=== PATIENT | female | born 1945 | race Caucasian/White ===

== ENCOUNTER 2016-04-19 09:15 | Day surgery (SDC) | payer MEDICARE, BC ==
[~2016-04-19 09:15] MED LIST: DIPHENHYDRAMINE HCL 50 MG/ML VIAL ONE; EPINEPHRINE INJ 1 MG/10 ML DISP.SYRIN ONE; FLUMAZENIL INJ 0.5 MG/5 ML VIAL IV ONE; GLUCAGON,HUMAN RECOMB 1 MG INJ ONE; NALOXONE HCL INJ/PF 0.4 MG/1 ML SDV ONE; ONDANSETRON HCL INJ/PF 4 MG/2 ML SDV ONE; PROMETHAZINE HCL INJ 25 MG/1 ML VIAL ONE
[2016-04-19] MEDS ORDERED: NALOXONE HCL INJ/PF 0.4 MG/1 ML SDV ONE (09:27)
[2016-04-19] MEDS ORDERED: ONDANSETRON HCL INJ/PF 4 MG/2 ML SDV ONE (09:27)
[2016-04-19] MEDS ORDERED: DIPHENHYDRAMINE HCL 50 MG/ML VIAL ONE (09:27)
[2016-04-19] MEDS ORDERED: PROMETHAZINE HCL INJ 25 MG/1 ML VIAL ONE (09:28)
[2016-04-19] MEDS ORDERED: MIDAZOLAM 2 MG/2 ML INJ ONE ×2 (09:28)
[2016-04-19] MEDS ORDERED: FENTANYL CITRATE INJ/PF 100 MCG/2 ML AMPUL ONE (09:29)
[2016-04-19] MEDS ORDERED: FLUMAZENIL INJ 0.5 MG/5 ML VIAL IV ONE (09:29)
[2016-04-19] MEDS ORDERED: GLUCAGON,HUMAN RECOMB 1 MG INJ ONE (09:29)
[2016-04-19] MEDS ORDERED: EPINEPHRINE INJ 1 MG/10 ML DISP.SYRIN ONE (09:29)
[2016-04-19] MEDS: MIDAZOLAM 2 MG/2 ML INJ ONE ×2 (09:50→09:54)
[2016-04-19] MEDS: FENTANYL CITRATE INJ/PF 100 MCG/2 ML AMPUL ONE ×2 (09:52→09:56)
--- NOTE | 2016-04-19 10:04 | Operative Report ---
Operative Report DATE OF SURGERY: 04/19/16 Operative Report: The risks benefits and alternatives of the procedure explained to the patient in detail and informed consent is obtained that GIF Olympus video scope was inserted into the patient's mouth and hypopharynx the esophagus is identified intubated and insufflated the scope was then advanced through the esophagus stomach and duodenum retroflexion maneuver is done the esophagus stomach and first and second portions of the duodenum examined PREOPERATIVE DIAGNOSIS: History of gastric sleeve for weight loss. Gastroesophageal reflux disease. Rule out obstruction POSTOPERATIVE DIAGNOSIS: Gastritis status post biopsy rule out Helicobacter pylori. Duodenitis OPERATION: EGD with biopsy SURGEON: BLAKE DAUGHERTY ANESTHESIA: Moderate Sedation - 4 mg of Versed, 50 g of fentanyl. TISSUE REMOVED OR ALTERED: Gastric specimens obtained rule out Helicobacter pylori COMPLICATIONS: None. ESTIMATED BLOOD LOSS: none. INTRAOPERATIVE FINDINGS: As described above. PROCEDURE: Patient tolerated the procedure well. No immediate postprocedure complications noted. Patient is discharged in good condition. Discharge date 04/19/2016. Discharge diet: Regular. Discharge activity: Regular. Patient has a 2-3 week follow-up to discuss findings. She is instructed to go to emergency room to any further problems or questions. We'll await on biopsies.
[2016-04-19 11:08] VITALS: BP 152/69
== END 2016-04-19 11:10 | disposition home or self-care (01) ==
LOC: END 09:15
PROVIDERS: ATTEND Internal Medicine Gastroenterology
PROC: 0DB68ZX Excision of Stomach, Via Natural or Artificial Opening Endoscopic, Diagnostic (ICD-10-PCS; principal; 2016-04-19 10:00)
DX: K21.9 Gastro-esophageal reflux disease without esophagitis (principal); K29.50 Unspecified chronic gastritis without bleeding; K76.0 Fatty (change of) liver, not elsewhere classified; K22.2 Esophageal obstruction; E66.01 Morbid (severe) obesity due to excess calories; G47.33 Obstructive sleep apnea (adult) (pediatric); E03.9 Hypothyroidism, unspecified; I12.9 Hypertensive chronic kidney disease with stage 1 through stage 4 chronic kidney disease, or unspecified chronic kidney disease; N18.3 Chronic kidney disease, stage 3 (moderate); E11.42 Type 2 diabetes mellitus with diabetic polyneuropathy; Z68.38 Body mass index [BMI] 38.0-38.9, adult; Z88.0 Allergy status to penicillin; Z79.4 Long term (current) use of insulin; Z79.899 Other long term (current) drug therapy; Z88.6 Allergy status to analgesic agent; Z88.8 Allergy status to other drugs, medicaments and biological substances; Z91.041 Radiographic dye allergy status
CPT/HCPCS: 43239; 82962; 88342 ×2; 88305 ×2; J2250; J3010; J0171; J1200; J1610; J2310; J2405; J2550; J3490

== ENCOUNTER 2017-03-23 16:27 | Inpatient (IN) | payer MEDICARE, BC ==
[2017-03-23] MEDS ORDERED: NORMAL SALINE 1000 ML 1,000 ML IV ONE ×2 (16:41→19:53)
[2017-03-23] MEDS ORDERED: KETOROLAC TROMETHAMINE INJ/PF 30 MG/1 ML SDV IV ONE (16:42)
--- NOTE | 2017-03-23 16:44 | ER Document Report ---
ED Medical Screen (RME) - General Chief Complaint: Flank Pain Stated Complaint: PAIN IN BACK AND RIGHT SIDE Time Seen by Provider: 03/23/17 16:41 Mode of Arrival: Ambulatory Information source: Patient TRAVEL OUTSIDE OF THE [place] IN LAST 30 DAYS: No - HPI Patient complains to provider of: R flank pain Onset: Yesterday - pt. with h/o renal colic has c/o R flank pain for the past 1- 2 days - Related Data Allergies/Adverse Reactions: bee venom protein (honey bee) Allergy (Verified 03/23/17 16:42) Iodinated Contrast- Oral and IV Dye [IV Dye, Iodine Containing] Allergy ( Verified 03/23/17 16:28) Penicillins Allergy (Verified 03/23/17 16:28) Past Medical History - Past Medical History Cardiac Medical History: Reports: Hx Heart Attack, Hx Hypertension Denies: Hx Coronary Artery Disease Pulmonary Medical History: Reports: Hx Pneumonia Denies: Hx Asthma, Hx Bronchitis, Hx COPD Neurological Medical History: Reports: Hx Cerebrovascular Accident. Denies: Hx Seizures Endocrine Medical History: Reports: Hx Diabetes Mellitus Type 2 Renal/ Medical History: Denies: Hx Peritoneal Dialysis Musculoskeltal Medical History: Reports Hx Arthritis Past Surgical History: Denies: Hx Hysterectomy - Immunizations Hx Diphtheria, Pertussis, Tetanus Vaccination: Yes Physical Exam - Vital signs Vitals: Temp Pulse Resp BP Pulse Ox 97.6 F 75 20 132/48 H 97 03/23/17 16:32 03/23/17 16:32 03/23/17 16:32 03/23/17 16:32 03/23/17 16:32 Course - Vital Signs Vital signs: Temp Pulse Resp BP Pulse Ox 97.6 F 75 20 132/48 H 97 03/23/17 16:32 03/23/17 16:32 03/23/17 16:32 03/23/17 16:32 03/23/17 16:32
[2017-03-23] MEDS ORDERED: MORPHINE SULFATE 10 MG/ML INJ IV ONE (17:28)
[2017-03-23 17:41] LABS: APPEARANCE,URINE SLIGHTLY-CLOUDY; BILIRUBIN,URINE NEGATIVE (NEGATIVE); GLUCOSE, URINE NEGATIVE (NEGATIVE); KETONES,URINE NEGATIVE (NEGATIVE); LEUKOCYTE ESTERASE,URINE LARGE (NEGATIVE); NITRITE,URINE NEGATIVE (NEGATIVE); PROTEIN,URINE NEGATIVE (NEGATIVE); URINE SPECIFIC GRAVITY 1.019
--- NOTE | 2017-03-23 18:13 | RADIOLOGY REPORT (SQ) ---
EXAM DESCRIPTION: CT LTD RENAL STONE PROTOCOL ON COMPLETED DATE/TIME: 03/23/2017 5:51 pm REASON FOR STUDY: R flank pain COMPARISON: None. TECHNIQUE: CT scan of the abdomen and pelvis performed without intravenous or oral contrast. Images reviewed with lung, soft tissue, and bone windows. Reconstructed coronal and sagittal MPR images revi ewed. All images stored on PACS. All CT scanners at this facility use dose modulation, iterative reconstruction, and/or weight based d osing when appropriate to reduce radiation dose to as low as reasonably achievable (ALARA). [facility]: Dose Right [facility]: CareDose [facility]: Dose Right [facility]: Teradose 4D [facility]: [employer] RADIATION DOSE: mGy. LIMITATIONS: None. FINDINGS: LOWER CHEST: No significant findings. No nodules or infiltrates. NON-CONTRASTED LIVER, SPLEEN, ADRENALS: Evaluation limited by lack of IV contrast. No identified sign ificant masses. PANCREAS: Trace peripancreatic inflammatory changes near the pancreatic head- duodenal confluence. GALLBLADDER: No identified stones by CT criteria. No inflammatory changes to suggest cholecystitis. RIGHT KIDNEY AND URETER: No suspicious masses. Assessment limited by lack of IV contrast. No signif icant calcifications. No hydronephrosis or hydroureter. LEFT KIDNEY AND URETER: No suspicious masses. Assessment limited by lack of IV contrast. Small sai l calcifications. No hydronephrosis or hydroureter. AORTA AND RETROPERITONEUM: No aneurysm. No retroperitoneal masses or adenopathy. BOWEL AND PERITONEAL CAVITY: Prior gastric surgery. No obvious masses or inflammatory changes. No fr ee fluid. APPENDIX: Normal. PELVIS, BLADDER, AND ABDOMINAL WALL: Trace free fluid. Bladder normal. BONES: No acute findings. OTHER: No other significant finding. IMPRESSION: Trace peripancreatic inflammatory changes near the pancreatic head- duodenal confluence. Trace pelvic free fluid. COMMENT: Quality ID # [id number]: Final reports with documentation of one or more dose reduction techniques (e.g., Automated exposure control, adjustment of the mA and/or kV according to patient size, use of iterative reconstruction technique) TECHNICAL DOCUMENTATION: JOB ID: [id number] [place]-72 2010 [employer]- All Rights Reserved
[2017-03-23 18:54] LABS: ABSOLUTE BASOPHILS # (AUTO) 0.1 10^3/uL (0.0-0.2); ABSOLUTE EOSINOPHILS # (AUTO) 0.2 10^3/uL (0.0-0.6); ABSOLUTE LYMPHOCYTES (AUTO) 3.1 10^3/uL (0.5-4.7); ABSOLUTE MONOCYTES (AUTO) 0.9 10^3/uL (0.1-1.4); ABSOLUTE NEUT (AUTO) 10.9 10^3/uL (1.7-8.2); BASOPHILS % (AUTO) 0.6 % (0-2); EOSINOPHILS % (AUTO) 1.1 % (0-6); HEMATOCRIT 42.9 % (36.0-47.0); HEMOGLOBIN 14.4 g/dL (12.0-15.5); HGB HCT DIFFERENCE 0.3; LYMPHOCYTES % (AUTO) 20.2 % (13-45); MEAN CORPUSCULAR HEMOGLOBIN 30.6 pg (27.0-33.4); MEAN CORPUSCULAR HGB CONC 33.6 g/dL (32.0-36.0); MEAN CORPUSCULAR VOLUME 91 fl (80-97); MONOCYTES % (AUTO) 6.2 % (3-13); RED BLOOD COUNT 4.71 10^6/uL (3.72-5.28); RED CELL DISTRIBUTION WIDTH 13.4 % (11.5-14.0); SEGMENTED NEUTROPHILS % (AUTO) 71.9 % (42-78); WHITE BLOOD COUNT 15.2 10^3/uL (4.0-10.5)
[2017-03-23 18:58] LABS: ALANINE AMINOTRANSFERASE 57 U/L (9-52); ALBUMIN 4.3 g/dL (3.5-5.0); ALKALINE PHOSPHATASE 164 U/L (38-126); ANION GAP 16 (5-19); ASPARTATE AMINO TRANSFERASE 85 U/L (14-36); BILIRUBIN,DIRECT 0.7 mg/dL (0.0-0.4); BILIRUBIN,TOTAL 0.8 mg/dL (0.2-1.3); BLOOD UREA NITROGEN 32 mg/dL (7-20); CALCIUM 9.3 mg/dL (8.4-10.2); CARBON DIOXIDE 22 mmol/L (22-30); CHLORIDE 107 mmol/L (98-107); CREATININE RESULT 1.39 mg/dL (0.52-1.25); GLUCOSE 155 mg/dL (75-110); SODIUM 144.9 mmol/L (137-145); TOTAL PROTEIN 7.5 g/dL (6.3-8.2)
--- NOTE | 2017-03-23 19:22 | ER Document Report ---
ED General - General Chief Complaint: Flank Pain Stated Complaint: PAIN IN BACK AND RIGHT SIDE Time Seen by Provider: 03/23/17 16:41 Mode of Arrival: Ambulatory Notes: Patient is a 71-year-old female with a past medical history of a gastric sleeve , medical history of hypertension, hyperlipidemia and depression who presents with 24 hours of progressively worsening right upper quadrant and epigastric abdominal pain. She does describe this as a dull, constant, throbbing pain that has been worsening since onset. Nothing improves or worsens her symptoms. She notes that she has had no appetite today secondary to the pain and nausea but has not vomited. She notes she has had soft stools but no overt diarrhea. She denies any history of similar symptoms in the past. She denies any use of alcohol. She has not seen her primary care doctor regarding today's concerns. She denies any fever, chest pain or shortness of breath. TRAVEL OUTSIDE OF THE [place] IN LAST 30 DAYS: No - Related Data Allergies/Adverse Reactions: bee venom protein (honey bee) Allergy (Verified 03/23/17 16:42) Iodinated Contrast- Oral and IV Dye [IV Dye, Iodine Containing] Allergy ( Verified 03/23/17 16:28) Penicillins Allergy (Verified 03/23/17 16:28) Past Medical History - General Information source: Patient - Social History Smoking Status: Never Smoker Frequency of alcohol use: None Drug Abuse: None Lives with: Spouse/Significant other Family History: Reviewed & Not Pertinent Patient has suicidal ideation: No Patient has homicidal ideation: No - Past Medical History Cardiac Medical History: Reports: Hx Heart Attack, Hx Hypertension Denies: Hx Coronary Artery Disease Pulmonary Medical History: Reports: Hx Pneumonia Denies: Hx Asthma, Hx Bronchitis, Hx COPD Neurological Medical History: Reports: Hx Cerebrovascular Accident. Denies: Hx Seizures Endocrine Medical History: Reports: Hx Diabetes Mellitus Type 2 Renal/ Medical History: Denies: Hx Peritoneal Dialysis Musculoskeltal Medical History: Reports Hx Arthritis Past Surgical History: Denies: Hx Hysterectomy - Immunizations Hx Diphtheria, Pertussis, Tetanus Vaccination: Yes Hx Pneumococcal Vaccination: 12/14/15 Review of Systems - Review of Systems Notes: Constitutional: Negative for fever. HENT: Negative for sore throat. Eyes: Negative for visual changes. Cardiovascular: Negative for chest pain. Respiratory: Negative for shortness of breath. Gastrointestinal: Positive for abdominal pain and nausea Genitourinary: Negative for dysuria. Musculoskeletal: Negative for back pain. Skin: Negative for rash. Neurological: Negative for headaches, weakness or numbness. 10 point ROS negative except as marked above and in HPI. Physical Exam - Vital signs Vitals: Temp Pulse Resp BP Pulse Ox 97.6 F 75 20 132/48 H 97 03/23/17 16:32 03/23/17 16:32 03/23/17 16:32 03/23/17 16:32 03/23/17 16:32 Interpretation: Normal Notes: PHYSICAL EXAMINATION: GENERAL: Appears moderately uncomfortable but in no acute distress HEAD: Atraumatic, normocephalic. EYES: Pupils equal round and reactive to light, extraocular movements intact, sclera anicteric, conjunctiva are normal. ENT: nares patent, oropharynx clear without exudates. Moderately dry mucous membranes. NECK: Normal range of motion, supple without lymphadenopathy LUNGS: Breath sounds clear to auscultation bilaterally and equal. No wheezes rales or rhonchi. HEART: Regular rate and rhythm without murmurs ABDOMEN: Soft, focal tenderness in the epigastrium and right upper quadrant without rebound or guarding EXTREMITIES: Normal range of motion, no pitting or edema. No cyanosis. NEUROLOGICAL: No focal neurological deficits. Moves all extremities spontaneously and on command. PSYCH: Normal mood, normal affect. SKIN: Warm, Dry, normal turgor, no rashes or lesions noted. Course - Re-evaluation Re-evalutation: 03/23/17 19:20 Patient presents with a clinical history and exam most consistent with acute pancreatitis. Patient does have a leukocytosis and a markedly elevated lipase. She has focal epigastric and right upper quadrant abdominal pain on abdominal examination but no otherwise localized tenderness. A CT renal protocol was ordered on the patient in triage for unclear reasons as her clinical history is not consistent with this diagnosis. This does demonstrate pancreatic inflammation but no evidence of gallstones to suggest a gallstone induced pancreatitis. Patient adamantly denies any history of alcohol use and no recent medication changes. This does appear to be an idiopathic pancreatitis. Given the patient has been unable to tolerate oral intake today and does have an IV analgesia requirement as well as her age, I believe she is most appropriately managed as an inpatient. Will discuss with hospitalist for admission 03/23/17 19:[address] Sanchez who is agreed to admit the patient. - Vital Signs Vital signs: Temp Pulse Resp BP Pulse Ox 97.6 F 75 20 132/48 H 97 03/23/17 16:32 03/23/17 16:32 03/23/17 16:32 03/23/17 16:32 03/23/17 16:32 - Laboratory Result Diagrams: 03/23/17 17:20 03/23/17 17:20 Laboratory results interpreted by me: 03/23/17 03/23/17 03/23/17 16:53 17:20 17:20 WBC 15.2 H Absolute Neutrophils 10.9 H BUN 32 H Creatinine 1.39 H Est GFR ( Amer) 45 L Est GFR (Non-Af Amer) 37 L Glucose 155 H Direct Bilirubin 0.7 H AST 85 H ALT 57 H Alkaline Phosphatase 164 H Lipase 09393.1 H Urine Blood SMALL H Urine Urobilinogen 2.0 H Ur Leukocyte Esterase LARGE H - Diagnostic Test Radiology reviewed: Reports reviewed Discharge - Discharge Clinical Impression: Dehydration Pancreatitis Qualifiers: Chronicity: acute Pancreatitis type: idiopathic Acute pancreatitis complication : unspecified Qualified Code(s): K85.00 - Idiopathic acute pancreatitis without necrosis or infection Condition: Fair Disposition: ADMITTED INPATIENT Admitting Provider: Carroll Sanchez Unit Admitted: Medical Floor
[2017-03-23 19:24] LABS: LIPASE 21711.1 U/L (23-300)
[2017-03-23] MEDS ORDERED: IPRATROPIUM/ALBUTEROL 0.5-2.5 MG/3 ML AMPUL NEB PRN (19:55)
[2017-03-23] MEDS ORDERED: ACETAMINOPHEN 325 MG TABLET PO PRN (19:55)
[2017-03-23] MEDS ORDERED: MAG HYDROX/AL HYDROX/SIMETH SUSP 30 ML UDCUP PO PRN (19:55)
[2017-03-23] MEDS ORDERED: MAGNESIUM HYDROXIDE SUSP 30 ML UDCUP PO PRN (19:55)
[2017-03-23] MEDS ORDERED: ASPIRIN 81 MG TABLET, ENT COATED PO PRN (20:00)
[2017-03-23] MEDS: MORPHINE SULFATE 10 MG/ML INJ IV PRN ×2 (20:15→22:25)
[2017-03-23] MEDS ORDERED: LACTULOSE SYRUP 20 GM/30 ML UDCUP PO ONE (20:30)
[2017-03-23] MEDS ORDERED: INSULIN LISPRO 100 UNIT/ML 3 ML VIAL SUBCUT SCH (22:00)
[2017-03-23] MEDS: HEPARIN SOD (PORCINE) 5,000 UNIT/ML 1 ML SYRINGE SUBCUT SCH (22:26)
[2017-03-24] MEDS: KETOROLAC TROMETHAMINE INJ/PF 30 MG/1 ML SDV IV PRN (02:12)
[2017-03-24] MEDS: NORMAL SALINE 1000 ML 1,000 ML IV SCH ×2 (02:54→13:30)
--- NOTE | 2017-03-24 05:06 | PDOC H&P ---
History of Present Illness Admission Date/PCP: 03/23/17 19:55 Patient complains of: Epigastric pain and nausea History of Present Illness: OTF RIVERA is a 71 year old female with a past medical history of coronary artery disease, diabetes, dyslipidemia, hypothyroidism who is status post gastric sleeve approximately 12 months ago. Patient presents with 3 or 4 days of epigastric pain that radiates to the back associated with nausea without vomiting and loose stools. Pain is exacerbated by p.o. intake, alleviated by leaning forward and minimizing movement. She denies fever chills palpitations or chest pain. She denies previous episode, alcohol or new medications. In the emergency room she is found to have unremarkable LFTs but a lipase of 21, [address] showing inflammation of the head of the pancreas without ductal dilatation. She is referred to the hospitalist for admission. Past Medical History Cardiac Medical History: Reports: Myocardial Infarction, Hypertension Denies: Coronary Artery Disease Pulmonary Medical History: Reports: Pneumonia Denies: Asthma, Bronchitis, Chronic Obstructive Pulmonary Disease (COPD) Neurological Medical History: Denies: Seizures Endocrine Medical History: Reports: Diabetes Mellitus Type 2 Renal/ Medical History: Reports: Chronic Kidney Disease Musculoskeltal Medical History: Reports: Arthritis Hematology: Denies: Anemia Past Surgical History Past Surgical History: Reports: Other - Gastric sleeve 1 year ago Denies: Hysterectomy Social History Information Source: Patient Lives with: Spouse/Significant other Smoking Status: Never Smoker Frequency of Alcohol Use: None - Advance Directive Resuscitation Status: Full Code Family History Family History: Hypertension, Malignancy - Lung cancer Parental Family History Reviewed: Yes Children Family History Reviewed: Yes Sibling(s) Family History Reviewed.: Yes Medication/Allergy Home Medications: Insulin Lispro [Humalog Insulin (Lispro) 100 unit/mL] 15 unit SUBCUT QHS Levothyroxine Sodium [Synthroid] 200 mcg PO DAILY 03/03/13 Aspirin [Aspirin EC] 81 mg PO DAILY PRN 04/18/16 Atorvastatin Calcium [Lipitor 80 mg Tablet] 80 mg PO QHS 04/18/16 Clopidogrel Bisulfate [Plavix 75 mg Tablet] 75 mg PO DAILY 04/18/16 Liraglutide [Victoza 2-Luis Antonio] 1.8 mg SQ DAILY 04/18/16 Losartan Potassium [Cozaar 100 mg Tablet] 100 mg PO QHS 04/18/16 Multivit-Min/Iron/Folic Acid/K [Multi-Day Plus Minerals Tablet] 1 each PO DAILY 04/18/16 Omeprazole 20 mg PO DAILY 04/18/16 Allergies/Adverse Reactions: bee venom protein (honey bee) Allergy (Verified 03/23/17 16:42) Iodinated Contrast- Oral and IV Dye [IV Dye, Iodine Containing] Allergy ( Verified 03/23/17 16:28) Penicillins Allergy (Verified 03/23/17 16:28) Review of Systems Constitutional: ABSENT: chills, fever(s), headache(s), weight gain, weight loss Eyes: ABSENT: visual disturbances Ears: ABSENT: hearing changes Cardiovascular: ABSENT: chest pain, dyspnea on exertion, edema, orthropnea, palpitations Respiratory: ABSENT: cough, hemoptysis Gastrointestinal: ABSENT: abdominal pain, constipation, diarrhea, hematemesis, hematochezia, nausea, vomiting Genitourinary: ABSENT: dysuria, hematuria Musculoskeletal: ABSENT: joint swelling Integumentary: ABSENT: rash, wounds Neurological: ABSENT: abnormal gait, abnormal speech, confusion, dizziness, focal weakness, syncope Psychiatric: ABSENT: anxiety, depression, homidical ideation, suicidal ideation Endocrine: ABSENT: cold intolerance, heat intolerance, polydipsia, polyuria Hematologic/Lymphatic: ABSENT: easy bleeding, easy bruising Physical Exam Vital Signs: Temp Pulse Resp BP Pulse Ox 97.6 F 75 20 132/48 H 97 03/23/17 16:32 03/23/17 16:32 03/23/17 16:32 03/23/17 16:32 03/23/17 16:32 General appearance: PRESENT: cooperative, mild distress Head exam: PRESENT: atraumatic, normocephalic Eye exam: PRESENT: conjunctiva pink, EOMI, PERRLA. ABSENT: scleral icterus Ear exam: PRESENT: normal external ear exam Mouth exam: PRESENT: moist, tongue midline Neck exam: ABSENT: carotid bruit, JVD, lymphadenopathy, thyromegaly Respiratory exam: PRESENT: clear to auscultation porsche. ABSENT: rales, rhonchi, wheezes Cardiovascular exam: PRESENT: RRR. ABSENT: diastolic murmur, rubs, systolic murmur Pulses: PRESENT: normal dorsalis pedis pul Vascular exam: PRESENT: normal capillary refill GI/Abdominal exam: PRESENT: normal bowel sounds, soft, tenderness - Epigastric tenderness without rebound. ABSENT: ascites, distended, guarding, mass, organolmegaly, rebound Rectal exam: PRESENT: deferred Extremities exam: PRESENT: full ROM. ABSENT: calf tenderness, clubbing, pedal edema Neurological exam: PRESENT: alert, awake, oriented to person, oriented to place , oriented to time, oriented to situation, CN II-XII grossly intact. ABSENT: motor sensory deficit Psychiatric exam: PRESENT: appropriate affect, normal mood. ABSENT: homicidal ideation, suicidal ideation Skin exam: PRESENT: dry, intact, warm. ABSENT: cyanosis, rash Results Impressions: Limited or Localized CT 03/23/17 16:42 IMPRESSION: Trace peripancreatic inflammatory changes near the pancreatic head - duodenal confluence.Trace pelvic free fluid. Assessment & Plan - Diagnosis (1) Acute pancreatitis Is this a current diagnosis for this admission?: Yes Plan: Unclear cause idiopathic versus hypertriglyceridemia profile pending, bowel rest , symptomatic management IV fluid and electrolyte repletion as needed. Follow- up Chem-12, consider additional imaging GI consult ordered (2) CKD stage 3 due to type 2 diabetes mellitus Is this a current diagnosis for this admission?: Yes Plan: Currently at baseline avoid dehydration, nephrotoxic meds and doses (3) Diabetes Is this a current diagnosis for this admission?: Yes Plan: Resume home insulin at 50% with sliding scale follow-up A1c (4) Dyslipidemia Is this a current diagnosis for this admission?: Yes Plan: Lipid profile pending - Time Time Spent: 30 to 50 Minutes - Inpatient Certification Medical Necessity: Need Close Monitoring Due to Risk of Patient Decompensation
[2017-03-24 06:15] LABS: ABSOLUTE LYMPHOCYTES (AUTO) 0.6 10^3/uL (0.5-4.7); ABSOLUTE MONOCYTES (AUTO) 0.5 10^3/uL (0.1-1.4); ABSOLUTE NEUT (AUTO) 7.9 10^3/uL (1.7-8.2); BASOPHILS % (AUTO) 0.2 % (0-2); EOSINOPHILS % (AUTO) 0.1 % (0-6); HEMATOCRIT 39.4 % (36.0-47.0); HEMOGLOBIN 13.3 g/dL (12.0-15.5); HGB HCT DIFFERENCE 0.5; MEAN CORPUSCULAR HEMOGLOBIN 30.4 pg (27.0-33.4); MEAN CORPUSCULAR HGB CONC 33.7 g/dL (32.0-36.0); MEAN CORPUSCULAR VOLUME 90 fl (80-97); MONOCYTES % (AUTO) 5.6 % (3-13); RED BLOOD COUNT 4.37 10^6/uL (3.72-5.28); RED CELL DISTRIBUTION WIDTH 13.3 % (11.5-14.0); SEGMENTED NEUTROPHILS % (AUTO) 87.1 % (42-78); WHITE BLOOD COUNT 9.1 10^3/uL (4.0-10.5)
[2017-03-24 06:33] LABS: ALANINE AMINOTRANSFERASE 64 U/L (9-52); ALBUMIN 3.4 g/dL (3.5-5.0); ALKALINE PHOSPHATASE 147 U/L (38-126); ANION GAP 10 (5-19); ASPARTATE AMINO TRANSFERASE 51 U/L (14-36); BILIRUBIN,DIRECT 0.3 mg/dL (0.0-0.4); BILIRUBIN,TOTAL 0.5 mg/dL (0.2-1.3); BLOOD UREA NITROGEN 27 mg/dL (7-20); CALCIUM 8.1 mg/dL (8.4-10.2); CARBON DIOXIDE 23 mmol/L (22-30); CHLORIDE 112 mmol/L (98-107); CHOLESTEROL 158.64 mg/dL (0-200); CREATININE RESULT 1.09 mg/dL (0.52-1.25); Direct HDL 47 mg/dL (>40); GLUCOSE 128 mg/dL (75-110); POTASSIUM 4.9 mmol/L (3.6-5.0); SODIUM 145.3 mmol/L (137-145); TOTAL PROTEIN 5.9 g/dL (6.3-8.2); TRIGLYCERIDES 115 mg/dL (<150)
[2017-03-24 06:44] LABS: DIRECT LDL 95 mg/dL (<100)
[2017-03-24 07:00] LABS: LIPASE 5416.5 U/L (23-300)
[2017-03-24] MEDS: MORPHINE SULFATE 10 MG/ML INJ IV PRN ×4 (07:48→21:19)
[2017-03-24] MEDS: HEPARIN SOD (PORCINE) 5,000 UNIT/ML 1 ML SYRINGE SUBCUT SCH ×3 (07:49→21:10)
[2017-03-24] MEDS: LEVOTHYROXINE SODIUM 0.1 MG TABLET PO SCH (08:10)
[2017-03-24] MEDS: ASPIRIN 81 MG TABLET, ENT COATED PO SCH (10:20)
[2017-03-24] MEDS: CLOPIDOGREL BISULFATE 75 MG TABLET PO SCH (10:20)
--- NOTE | 2017-03-24 16:38 | PDOC PROGRESS REPORT ---
Subjective Progress Note for:: 03/24/17 Reason For Visit: ACUTE PANCREATITIS ABD PAIN AND NAUSEA Physical Exam Vital Signs: Temp Pulse Resp BP Pulse Ox 97.7 F 81 18 151/70 H 95 03/24/17 14:14 03/24/17 14:14 03/24/17 14:14 03/24/17 14:14 03/24/17 14:14 Intake & Output 03/23/17 03/24/17 03/25/17 06:59 06:59 06:59 Output Total 50 Balance -50 Weight 100.5 kg Results Laboratory Results: 03/24/17 06:06 03/24/17 06:06 03/24/17 03/24/17 06:06 06:06 WBC 9.1 RBC 4.37 Hgb 13.3 Hct 39.4 MCV 90 MCH 30.4 MCHC 33.7 RDW 13.3 Plt Count 174 Seg Neutrophils % 87.1 H Lymphocytes % 7.0 L Monocytes % 5.6 Eosinophils % 0.1 Basophils % 0.2 Absolute Neutrophils 7.9 Absolute Lymphocytes 0.6 Absolute Monocytes 0.5 Absolute Eosinophils 0.0 Absolute Basophils 0.0 Sodium 145.3 H Potassium 4.9 Chloride 112 H Carbon Dioxide 23 Anion Gap 10 BUN 27 H Creatinine 1.09 Est GFR ( Amer) > 60 Est GFR (Non-Af Amer) 50 L Glucose 128 H Calcium 8.1 L Total Bilirubin 0.5 AST 51 H ALT 64 H Alkaline Phosphatase 147 H Total Protein 5.9 L Albumin 3.4 L Triglycerides 115 Cholesterol 158.64 LDL Cholesterol Direct 95 VLDL Cholesterol 23.0 HDL Cholesterol 47 Lipase 5416.5 H Impressions: Limited or Localized CT 03/23/17 16:42 IMPRESSION: Trace peripancreatic inflammatory changes near the pancreatic head - duodenal confluence.Trace pelvic free fluid. Assessment & Plan - Diagnosis (1) Acute pancreatitis Is this a current diagnosis for this admission?: Yes Plan: Continue with IV fluids, pain medications. Patient has no gall stones and no alcohol use. (2) CKD stage 3 due to type 2 diabetes mellitus Is this a current diagnosis for this admission?: Yes Plan: We will give IV fluids and monitor creatinine. (3) Diabetes Is this a current diagnosis for this admission?: Yes Plan: Cover with sliding scale insulin. (4) Dyslipidemia Is this a current diagnosis for this admission?: Yes - Time Time Spent with patient: 25-34 minutes - Plan Summary Plan Summary: Of note, this patient's mother is currently hospitalized in room 210.
[2017-03-25] MEDS: MORPHINE SULFATE 10 MG/ML INJ IV PRN ×4 (06:00→21:27)
[2017-03-25] MEDS: LEVOTHYROXINE SODIUM 0.1 MG TABLET PO SCH (06:00)
[2017-03-25] MEDS: HEPARIN SOD (PORCINE) 5,000 UNIT/ML 1 ML SYRINGE SUBCUT SCH ×3 (06:00→21:27)
[2017-03-25 06:29] LABS: ABSOLUTE LYMPHOCYTES (AUTO) 0.9 10^3/uL (0.5-4.7); ABSOLUTE MONOCYTES (AUTO) 0.8 10^3/uL (0.1-1.4); ABSOLUTE NEUT (AUTO) 12.4 10^3/uL (1.7-8.2); BASOPHILS % (AUTO) 0.3 % (0-2); EOSINOPHILS % (AUTO) 0.3 % (0-6); HEMATOCRIT 39.6 % (36.0-47.0); HEMOGLOBIN 13.6 g/dL (12.0-15.5); HGB HCT DIFFERENCE 1.2; LYMPHOCYTES % (AUTO) 6.4 % (13-45); MEAN CORPUSCULAR HGB CONC 34.3 g/dL (32.0-36.0); MEAN CORPUSCULAR VOLUME 91 fl (80-97); MONOCYTES % (AUTO) 5.8 % (3-13); RED BLOOD COUNT 4.38 10^6/uL (3.72-5.28); RED CELL DISTRIBUTION WIDTH 13.2 % (11.5-14.0); SEGMENTED NEUTROPHILS % (AUTO) 87.2 % (42-78); WHITE BLOOD COUNT 14.3 10^3/uL (4.0-10.5)
[2017-03-25 07:02] LABS: ANION GAP 14 (5-19); BLOOD UREA NITROGEN 17 mg/dL (7-20); CALCIUM 8.3 mg/dL (8.4-10.2); CARBON DIOXIDE 19 mmol/L (22-30); CHLORIDE 109 mmol/L (98-107); GLUCOSE 88 mg/dL (75-110); SODIUM 142.1 mmol/L (137-145)
--- NOTE | 2017-03-25 09:02 | PDOC CONSULTATION ---
Consultation Consult Date: 03/25/17 Attending physician:: BLAKE DAUGHERTY Consult reason:: Pancreatitis History of Present Illness Admission Date/PCP: 03/23/17 19:55 History of Present Illness: I am asked to see this patient by the Hospitalist physician I had seen the patient earlier in the year had gastric sleeve surgery last year had EGD done earlier in the year and biopsies are negative there were no ulcers patient had been doing well started to have right flank pain then over the weekend had abdominal pain was admitted and noted to have pancreatitis CT scan had fluid around the pancreatic head and the duodenum area patient says does not drink, no dilated duct, no abnormalities noted on CT scan to show CBD stone clinically improving anxious to try fluids patient denies any blood in her stools there is no nausea or vomiting Past Medical History Cardiac Medical History: Reports: Myocardial Infarction, Hypertension Denies: Coronary Artery Disease Pulmonary Medical History: Reports: Pneumonia Denies: Asthma, Bronchitis, Chronic Obstructive Pulmonary Disease (COPD) Neurological Medical History: Denies: Seizures Endocrine Medical History: Reports: Diabetes Mellitus Type 2 Renal/ Medical History: Reports: Chronic Kidney Disease Musculoskeltal Medical History: Reports: Arthritis Psychiatric Medical History: Reports: Depression Hematology: Denies: Anemia Past Surgical History Past Surgical History: Reports: Other - Gastric sleeve 1 year ago Denies: Hysterectomy Social History Lives with: Spouse/Significant other Smoking Status: Former Smoker Frequency of Alcohol Use: None Drugs: None Hx Prescription Drug Abuse: No - Advance Directive Resuscitation Status: Full Code Family History Family History: Hypertension, Malignancy - Lung cancer Parental Family History Reviewed: Yes Children Family History Reviewed: Unknown Sibling(s) Family History Reviewed.: Unknown Medication/Allergy Home Medications: Esomeprazole Magnesium [Nexium] 20 mg PO DAILY 03/24/17 Levothyroxine Sodium [Synthroid 0.112 mg Tablet] 0.112 mg PO DAILY 03/24/17 Losartan Potassium [Cozaar 100 mg Tablet] 100 mg PO DAILY 03/24/17 Nifedipine [Nifedipine ER] 60 mg PO DAILY 03/24/17 Paroxetine HCl [Paxil 20 mg Tablet] 20 mg PO DAILY 03/24/17 Allergies/Adverse Reactions: bee venom protein (honey bee) Allergy (Verified 03/23/17 16:42) Iodinated Contrast- Oral and IV Dye [IV Dye, Iodine Containing] Allergy ( Verified 03/23/17 16:28) Penicillins Allergy (Verified 03/23/17 16:28) Review of Systems Constitutional: ABSENT: fever(s), headache(s), night sweats, weakness Eyes: ABSENT: visual disturbances Ears: ABSENT: hearing changes Cardiovascular: ABSENT: edema, orthropnea Respiratory: ABSENT: dyspnea, hemoptysis Gastrointestinal: ABSENT: diarrhea, dysphagia, melena Genitourinary: ABSENT: dysuria, hematuria Musculoskeletal: ABSENT: deformity, joint swelling Integumentary: ABSENT: lesions, pruritus Neurological: ABSENT: syncope, tingling, tremor(s), vertigo Endocrine: ABSENT: polydipsia, polyphagia, polyuria Hematologic/Lymphatic: ABSENT: easy bruising Physical Exam Vital Signs: Temp Pulse Resp BP Pulse Ox 98.8 F 78 18 140/72 H 96 03/25/17 07:20 03/25/17 07:20 03/25/17 07:20 03/25/17 07:20 03/25/17 07:20 Intake & Output 03/24/17 03/25/17 03/26/17 06:59 06:59 06:59 Intake Total 1095 Output Total 750 Balance 345 Weight 100.5 kg General appearance: PRESENT: no acute distress, well-developed, well-nourished Head exam: PRESENT: atraumatic, normocephalic Eye exam: PRESENT: EOMI, PERRLA. ABSENT: nystagmus, periorbital swelling, scleral icterus Mouth exam: PRESENT: moist, neck supple Throat exam: ABSENT: tonsillar exudate Neck exam: ABSENT: meningismus, tenderness, thyromegaly Respiratory exam: PRESENT: symmetrical, unlabored. ABSENT: tachypnea, wheezes Cardiovascular exam: PRESENT: RRR, +S1, +S2. ABSENT: rubs GI/Abdominal exam: PRESENT: soft. ABSENT: rebound, rigid, tenderness Extremities exam: ABSENT: joint swelling Musculoskeletal exam: PRESENT: full ROM Neurological exam: PRESENT: oriented to time, oriented to situation, CN II-XII grossly intact Psychiatric exam: PRESENT: appropriate affect Focused psych exam: ABSENT: restlessness Skin exam: PRESENT: normal color. ABSENT: mottled, pallor, urticaria, vesicles Results Laboratory Results: 03/25/17 05:57 03/25/17 05:57 03/25/17 03/25/17 05:57 05:57 WBC 14.3 H RBC 4.38 Hgb 13.6 Hct 39.6 MCV 91 MCH 31.0 MCHC 34.3 RDW 13.2 Plt Count 157 Seg Neutrophils % 87.2 H Lymphocytes % 6.4 L Monocytes % 5.8 Eosinophils % 0.3 Basophils % 0.3 Absolute Neutrophils 12.4 H Absolute Lymphocytes 0.9 Absolute Monocytes 0.8 Absolute Eosinophils 0.0 Absolute Basophils 0.0 Sodium 142.1 Potassium 4.0 Chloride 109 H Carbon Dioxide 19 L Anion Gap 14 BUN 17 Creatinine 1.10 Est GFR ( Amer) 59 L Est GFR (Non-Af Amer) 49 L Glucose 88 Calcium 8.3 L Lipase 1100.0 H Impressions: Limited or Localized CT 03/23/17 16:42 IMPRESSION: Trace peripancreatic inflammatory changes near the pancreatic head - duodenal confluence.Trace pelvic free fluid. Assessment & Plan - Diagnosis (1) Acute pancreatitis Is this a current diagnosis for this admission?: Yes Plan: patient is clinically improving etiology is as yet unclear may have been due to passage of gallstones no resulting biliary obstruction patient does not drink any alcohol may want to check IgG4 level ? if due to any of her medications if her numbers normalize and she is still having problems, then consideration for possible repeat EGD could be indicated will follow along - Time Time Spent: 50 to 70 Minutes
[2017-03-25] MEDS: ASPIRIN 81 MG TABLET, ENT COATED PO SCH (09:29)
[2017-03-25] MEDS: CLOPIDOGREL BISULFATE 75 MG TABLET PO SCH (09:29)
--- NOTE | 2017-03-25 18:01 | PDOC PROGRESS REPORT ---
Subjective Progress Note for:: 03/25/17 Subjective:: This is a follow-up visit for acute pancreatitis. Patient states that she still having abdominal pain. It is less severe today. I did review her medicine list. The only medication that she is taking that has a side effect of pancreatitis is Nexium. Reason For Visit: ACUTE PANCREATITIS ABD PAIN AND NAUSEA Physical Exam Vital Signs: Temp Pulse Resp BP Pulse Ox 98.3 F 82 18 128/71 H 93 03/25/17 15:26 03/25/17 15:26 03/25/17 15:26 03/25/17 15:26 03/25/17 15:26 Intake & Output 03/24/17 03/25/17 03/26/17 06:59 06:59 06:59 Intake Total 1095 150 Output Total 750 500 Balance 345 -350 Weight 100.5 kg GENERAL: This is a well-developed obese white female resting in bed currently in no acute distress. HEART: Regular rate and rhythm. No murmurs, rubs or gallops. LUNGS: Clear to auscultation bilaterally with equal rise and fall of the chest. ABDOMEN: Soft, mild tenderness in the epigastric area, nondistended with normoactive bowel sounds EXTREMETIES: No clubbing, cyanosis or edema. 2+ peripheral pulses bilaterally. NEURO: Awake, alert and oriented 3. Cranial nerves II through XII are grossly intact. Results Laboratory Results: 03/25/17 05:57 03/25/17 05:57 03/25/17 03/25/17 05:57 05:57 WBC 14.3 H RBC 4.38 Hgb 13.6 Hct 39.6 MCV 91 MCH 31.0 MCHC 34.3 RDW 13.2 Plt Count 157 Seg Neutrophils % 87.2 H Lymphocytes % 6.4 L Monocytes % 5.8 Eosinophils % 0.3 Basophils % 0.3 Absolute Neutrophils 12.4 H Absolute Lymphocytes 0.9 Absolute Monocytes 0.8 Absolute Eosinophils 0.0 Absolute Basophils 0.0 Sodium 142.1 Potassium 4.0 Chloride 109 H Carbon Dioxide 19 L Anion Gap 14 BUN 17 Creatinine 1.10 Est GFR ( Amer) 59 L Est GFR (Non-Af Amer) 49 L Glucose 88 Calcium 8.3 L Lipase 1100.0 H Impressions: Limited or Localized CT 03/23/17 16:42 IMPRESSION: Trace peripancreatic inflammatory changes near the pancreatic head - duodenal confluence.Trace pelvic free fluid. Assessment & Plan - Diagnosis (1) Acute pancreatitis Is this a current diagnosis for this admission?: Yes Plan: Patient symptoms may be secondary to a gallstone that has passed versus medication side effects. Of all the medications she is taking, Nexium does have a side effect of pancreatitis listed. This is at a rate of about 1% occurrence. For now I do not think her Nexium should be restarted. GI is following. Advanced to water and ice chips. (2) CKD stage 3 due to type 2 diabetes mellitus Is this a current diagnosis for this admission?: Yes (3) Diabetes Qualifiers: Diabetes mellitus type: type 2 Is this a current diagnosis for this admission?: Yes Plan: Continue sliding scale insulin (4) Obesity Qualifiers: Body mass index: BMI 39.0-39.9 Is this a current diagnosis for this admission?: Yes Plan: Patient is status post a gastric sleeve. Apparently after she had a gastric sleeve she was told to stop taking Plavix. Therefore Plavix has been discontinued. Continued weight loss through dietary changes and exercise as tolerated. (5) History of CVA (cerebrovascular accident) Is this a current diagnosis for this admission?: No Plan: Patient has a history of a CVA. It is unclear as to what kind of stroke. This happened about 2 years ago. 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 She was on Plavix at that time. Plavix was discontinued over a year ago when she had a gastric sleeve. She is not currently receiving any active treatment for CVA with the exception of daily aspirin. (6) Dyslipidemia Is this a current diagnosis for this admission?: Yes - Time Time Spent with patient: 15-24 minutes
[2017-03-26] MEDS: HEPARIN SOD (PORCINE) 5,000 UNIT/ML 1 ML SYRINGE SUBCUT SCH ×3 (05:30→21:23)
[2017-03-26] MEDS: MORPHINE SULFATE 10 MG/ML INJ IV PRN ×3 (07:36→19:35)
--- NOTE | 2017-03-26 08:46 | Operative Report ---
Operative Report DATE OF SURGERY: 03/26/17 Operative Report: The risks benefits and alternatives of the procedure explained to the patient in detail and informed consent is obtained. The patient is taken back to the endoscopy suite and placed in the left, lateral decubital position. Timeout was called. Conscious sedation medications are provided. A rectal examination is done which did not reveal any masses, tears or fissures. An Olympus videoscope was inserted into the patient's rectum. The scope was then gradually advanced all the way to the cecum. The cecum was identified by the usual anatomical landmarks including the ileocecal valve as well as the appendiceal office. Photodocumentation was obtained. The scope was then sequentially pulled back via the various segments of the colon including the ascending colon, hepatic flexure, transverse colon, splenic flexure, descending colon went to the rectosigmoid portions of the colon. Retroflexion maneuvers performed. PREOPERATIVE DIAGNOSIS: Colorectal cancer screening. POSTOPERATIVE DIAGNOSIS: Colon polyp that was removed via snare polypectomy, polyp was retrieved. Mild diverticulosis. Internal hemorrhoids OPERATION: Colonoscopy with snare polypectomy. SURGEON: BLAKE DAUGHERTY ANESTHESIA: Moderate Sedation TISSUE REMOVED OR ALTERED: As noted above. COMPLICATIONS: None. ESTIMATED BLOOD LOSS: None. INTRAOPERATIVE FINDINGS: As noted above. PROCEDURE: Patient tolerated the procedure well. No immediate postprocedure complications are noted. Patient discharged in good condition. Discharge date 03/26/2017. Discharge diet: Regular. Discharge activity: Regular. 2-3 week follow-up to discuss findings. Patient is instructed to call the office or proceed to the emergency room should there be any further problems or questions. We will await pathology. 3-5 year surveillance colonoscopy.
[2017-03-26] MEDS ORDERED: MIDAZOLAM 2 MG/2 ML INJ ONE ×2 (09:03→09:04)
[2017-03-26] MEDS ORDERED: DIPHENHYDRAMINE HCL 50 MG/ML VIAL ONE (09:03)
[2017-03-26] MEDS ORDERED: ONDANSETRON HCL INJ/PF 4 MG/2 ML SDV ONE (09:03)
[2017-03-26] MEDS ORDERED: NALOXONE HCL INJ/PF 0.4 MG/1 ML SDV ONE (09:03)
[2017-03-26] MEDS ORDERED: FLUMAZENIL INJ 0.5 MG/5 ML VIAL ONE (09:04)
[2017-03-26] MEDS ORDERED: FENTANYL CITRATE INJ/PF 100 MCG/2 ML AMPUL ONE (09:04)
[2017-03-26] MEDS ORDERED: EPINEPHRINE INJ 1 MG/10 ML DISP.SYRIN ONE (09:05)
[2017-03-26] MEDS ORDERED: GLUCAGON,HUMAN RECOMB 1 MG INJ ONE (09:05)
--- NOTE | 2017-03-26 09:43 | Operative Report ---
Operative Report DATE OF SURGERY: 03/26/17 Operative Report: The risks benefits and alternatives of the procedure explained to the patient in detail and informed consent is obtained.A GIF Olympus video scope was inserted into the patient's mouth and hypopharynx, the esophagus is identified intubated and insufflated, the scope was then advanced through the esophagus stomach and duodenum, retroflexion maneuver is done ,the esophagus stomach and first and second portions of the duodenum examined PREOPERATIVE DIAGNOSIS: Known history of pancreatitis. Persistent abdominal pain, no improvement since admission. Her lipase has dropped. She has had a gastric sleeve surgery. Rule out ulcer POSTOPERATIVE DIAGNOSIS: Significant erosions in in the narrow portion of the gastric sleeve, mild stricturing noted. Biopsies obtained. Normal gastric antrum. Normal esophagus OPERATION: EGD with biopsy SURGEON: BLAKE DAUGHERTY ANESTHESIA: Moderate Sedation - 2 mg of Versed, 25 mcg of fentanyl for conscious sedation monitoring time 30 minutes. TISSUE REMOVED OR ALTERED: As noted above. COMPLICATIONS: None. ESTIMATED BLOOD LOSS: None. INTRAOPERATIVE FINDINGS: As noted above. PROCEDURE: Patient tolerated procedure well. No immediate postprocedure complications are noted. Keep on clears and advance as tolerated. We will wait on biopsies. Ultimately she will need a PPI. According to the hospitalist there is a 1% chance of her current PPI causing pancreatitis. However since we need to heal the gastric erosions she will need an alternative PPI. Something like Protonix if the hospital does carry it. Continue to monitor. Further recommendations to follow.
[2017-03-26] MEDS: ASPIRIN 81 MG TABLET, ENT COATED PO SCH (10:49)
--- NOTE | 2017-03-26 17:53 | PDOC PROGRESS REPORT ---
Subjective Progress Note for:: 03/26/17 Subjective:: This is a follow-up visit for acute pancreatitis. Patient states that she is still having abdominal pain and now nausea. She is status post upper endoscopy which showed narrowing of her gastric sleeve. Reason For Visit: ACUTE PANCREATITIS ABD PAIN AND NAUSEA Physical Exam Vital Signs: Temp Pulse Resp BP Pulse Ox 98.5 F 70 16 133/52 H 96 03/26/17 12:00 03/26/17 12:00 03/26/17 12:00 03/26/17 12:00 03/26/17 12:00 Intake & Output 03/25/17 03/26/17 03/27/17 06:59 06:59 06:59 Intake Total 1095 330 100 Output Total 750 1700 Balance 345 -1370 100 Weight 100.5 kg 98.5 kg GENERAL: This is a well-developed obese white female resting in bed currently in no acute distress. HEART: Regular rate and rhythm. No murmurs, rubs or gallops. LUNGS: Clear to auscultation bilaterally with equal rise and fall of the chest. ABDOMEN: Soft, mild tenderness in the epigastric area, nondistended with normoactive bowel sounds EXTREMETIES: No clubbing, cyanosis or edema. 2+ peripheral pulses bilaterally. NEURO: Awake, alert and oriented 3. Cranial nerves II through XII are grossly intact. Results Laboratory Results: 03/25/17 05:57 03/25/17 05:57 Impressions: Limited or Localized CT 03/23/17 16:42 IMPRESSION: Trace peripancreatic inflammatory changes near the pancreatic head - duodenal confluence.Trace pelvic free fluid. Assessment & Plan - Diagnosis (1) Acute pancreatitis Is this a current diagnosis for this admission?: Yes Plan: Patient symptoms may be secondary medication side effects. Of all the medications she is taking, Nexium does have a side effect of pancreatitis listed as well as protonix. We could certainly restart this medication here and see how she tolerates it. Will discuss with GI and get their thoughts. (2) CKD stage 3 due to type 2 diabetes mellitus Is this a current diagnosis for this admission?: Yes (3) Diabetes Qualifiers: Diabetes mellitus type: type 2 Is this a current diagnosis for this admission?: Yes Plan: Continue sliding scale insulin (4) Obesity Qualifiers: Body mass index: BMI 39.0-39.9 Is this a current diagnosis for this admission?: Yes Plan: Patient is status post a gastric sleeve. Apparently after she had a gastric sleeve she was told to stop taking Plavix. Therefore Plavix has been discontinued. Continued weight loss through dietary changes and exercise as tolerated. (5) History of CVA (cerebrovascular accident) Is this a current diagnosis for this admission?: No Plan: Patient has a history of a CVA. It is unclear as to what kind of stroke. This happened about 2 years ago. 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 She was on Plavix at that time. Plavix was discontinued over a year ago when she had a gastric sleeve. She is not currently receiving any active treatment for CVA with the exception of daily aspirin. (6) Dyslipidemia Is this a current diagnosis for this admission?: Yes - Time Time Spent with patient: 15-24 minutes
[2017-03-26] MEDS: ONDANSETRON HCL INJ/PF 4 MG/2 ML SDV IV PRN (19:37)
[2017-03-26] MEDS: KETOROLAC TROMETHAMINE INJ/PF 30 MG/1 ML SDV IV PRN (21:28)
[2017-03-27] MEDS: ONDANSETRON HCL INJ/PF 4 MG/2 ML SDV IV PRN ×3 (01:34→18:47)
[2017-03-27 04:41] LABS: ABSOLUTE BASOPHILS # (AUTO) 0.1 10^3/uL (0.0-0.2); ABSOLUTE EOSINOPHILS # (AUTO) 0.3 10^3/uL (0.0-0.6); ABSOLUTE LYMPHOCYTES (AUTO) 1.1 10^3/uL (0.5-4.7); ABSOLUTE MONOCYTES (AUTO) 1.1 10^3/uL (0.1-1.4); ABSOLUTE NEUT (AUTO) 10.8 10^3/uL (1.7-8.2); BASOPHILS % (AUTO) 0.5 % (0-2); EOSINOPHILS % (AUTO) 1.9 % (0-6); HEMATOCRIT 37.1 % (36.0-47.0); HEMOGLOBIN 12.5 g/dL (12.0-15.5); HGB HCT DIFFERENCE 0.4; LYMPHOCYTES % (AUTO) 8.5 % (13-45); MEAN CORPUSCULAR HEMOGLOBIN 30.2 pg (27.0-33.4); MEAN CORPUSCULAR HGB CONC 33.6 g/dL (32.0-36.0); MEAN CORPUSCULAR VOLUME 90 fl (80-97); MONOCYTES % (AUTO) 8.5 % (3-13); RED BLOOD COUNT 4.13 10^6/uL (3.72-5.28); SEGMENTED NEUTROPHILS % (AUTO) 80.6 % (42-78); WHITE BLOOD COUNT 13.4 10^3/uL (4.0-10.5)
[2017-03-27] MEDS: HEPARIN SOD (PORCINE) 5,000 UNIT/ML 1 ML SYRINGE SUBCUT SCH ×3 (04:44→21:07)
[2017-03-27 04:49] LABS: ANION GAP 11 (5-19); BLOOD UREA NITROGEN 20 mg/dL (7-20); CALCIUM 8.5 mg/dL (8.4-10.2); CARBON DIOXIDE 21 mmol/L (22-30); CHLORIDE 105 mmol/L (98-107); CREATININE RESULT 0.99 mg/dL (0.52-1.25); GLUCOSE 101 mg/dL (75-110); MAGNESIUM 1.8 mg/dL (1.6-2.3); POTASSIUM 3.8 mmol/L (3.6-5.0); SODIUM 136.5 mmol/L (137-145)
[2017-03-27] MEDS: KETOROLAC TROMETHAMINE INJ/PF 30 MG/1 ML SDV IV PRN ×2 (09:23→18:47)
[2017-03-27] MEDS: ASPIRIN 81 MG TABLET, ENT COATED PO SCH (09:24)
[2017-03-27] MEDS ORDERED: PANTOPRAZOLE SODIUM 40 MG VIAL IV ONE (12:00)
[2017-03-27 12:33] LABS: APPEARANCE,URINE CLOUDY; BILIRUBIN,URINE NEGATIVE (NEGATIVE); CALCIUM OXALATE CRYSTALS,URINE MANY /HPF; GLUCOSE, URINE NEGATIVE (NEGATIVE); KETONES,URINE TRACE mg/dL (NEGATIVE); LEUKOCYTE ESTERASE,URINE LARGE (NEGATIVE); NITRITE,URINE NEGATIVE (NEGATIVE); PROTEIN,URINE 100 mg/dL (NEGATIVE)
--- NOTE | 2017-03-27 13:20 | PDOC PROGRESS REPORT ---
Subjective Progress Note for:: 03/27/17 Subjective:: patient is feeling much better today is of her morphine for pain had EGD yesterday, biopsies are negative, gastritis in the sleeve area tolerating a diet for now she will need short term PPI in order to heal the inflammation perhaps use of Protonix will be useful patient states ready to go home can follow up in 2-3 weeks Reason For Visit: ACUTE PANCREATITIS ABD PAIN AND NAUSEA Physical Exam Vital Signs: Temp Pulse Resp BP Pulse Ox 97.6 F 56 L 20 137/41 H 93 03/27/17 07:45 03/27/17 07:45 03/27/17 07:45 03/27/17 07:45 03/27/17 07:45 Intake & Output 03/26/17 03/27/17 03/28/17 06:59 06:59 06:59 Intake Total 330 1510 Output Total 1700 2375 Balance -1370 -865 Weight 98.5 kg 100.6 kg General appearance: PRESENT: no acute distress, well-developed, well-nourished Head exam: PRESENT: atraumatic, normocephalic Eye exam: PRESENT: EOMI, PERRLA. ABSENT: nystagmus, periorbital swelling, scleral icterus Mouth exam: PRESENT: moist, neck supple Throat exam: ABSENT: tonsillar exudate, tonsillogmegaly Neck exam: ABSENT: meningismus, tenderness, thyromegaly Respiratory exam: PRESENT: symmetrical, unlabored. ABSENT: tachypnea, wheezes Cardiovascular exam: PRESENT: RRR, +S1, +S2 GI/Abdominal exam: PRESENT: soft. ABSENT: rebound, rigid, tenderness Extremities exam: ABSENT: joint swelling Musculoskeletal exam: PRESENT: full ROM Neurological exam: PRESENT: oriented to time, oriented to situation, CN II-XII grossly intact Psychiatric exam: PRESENT: appropriate affect Focused psych exam: ABSENT: restlessness Skin exam: PRESENT: normal color. ABSENT: mottled, pallor, urticaria, vesicles Results Laboratory Results: 03/27/17 04:09 03/27/17 04:09 03/27/17 03/27/17 03/27/17 04:09 04:09 04:09 WBC 13.4 H RBC 4.13 Hgb 12.5 Hct 37.1 MCV 90 MCH 30.2 MCHC 33.6 RDW 13.0 Plt Count 160 Seg Neutrophils % 80.6 H Lymphocytes % 8.5 L Monocytes % 8.5 Eosinophils % 1.9 Basophils % 0.5 Absolute Neutrophils 10.8 H Absolute Lymphocytes 1.1 Absolute Monocytes 1.1 Absolute Eosinophils 0.3 Absolute Basophils 0.1 Sodium 136.5 L Potassium 3.8 Chloride 105 Carbon Dioxide 21 L Anion Gap 11 BUN 20 Creatinine 0.99 Est GFR ( Amer) > 60 Est GFR (Non-Af Amer) 55 L Glucose 101 Calcium 8.5 Magnesium 1.8 Lipase Cancelled Urine Color Urine Appearance Urine pH Ur Specific [place] Urine Protein Urine Glucose (UA) Urine Ketones Urine Blood Urine Nitrite Ur Leukocyte Esterase Urine WBC (Auto) Urine RBC (Auto) 03/27/17 03/27/17 10:32 12:35 WBC RBC Hgb Hct MCV MCH MCHC RDW Plt Count Seg Neutrophils % Lymphocytes % Monocytes % Eosinophils % Basophils % Absolute Neutrophils Absolute Lymphocytes Absolute Monocytes Absolute Eosinophils Absolute Basophils Sodium Potassium Chloride Carbon Dioxide Anion Gap BUN Creatinine Est GFR ( Amer) Est GFR (Non-Af Amer) Glucose Calcium Magnesium Lipase 98.0 Urine Color YELLOW Urine Appearance CLOUDY Urine pH 5.0 Ur Specific [place] 1.020 Urine Protein 100 H Urine Glucose (UA) NEGATIVE Urine Ketones TRACE H Urine Blood SMALL H Urine Nitrite NEGATIVE Ur Leukocyte Esterase LARGE H Urine WBC (Auto) 65 Urine RBC (Auto) 4 Impressions: Limited or Localized CT 03/23/17 16:42 IMPRESSION: Trace peripancreatic inflammatory changes near the pancreatic head - duodenal confluence.Trace pelvic free fluid. Assessment & Plan - Diagnosis (1) Acute pancreatitis Is this a current diagnosis for this admission?: Yes Plan: appears to be resolving patient may had sludge pancreatitis PPI for 8 weeks to achieve healing in the area of her sleeve can follow up as outpatient clinically has improved should be ready for discharge if tolerating diet - Time Time Spent with patient: 15-24 minutes
--- NOTE | 2017-03-27 16:31 | PDOC PROGRESS REPORT ---
Subjective Progress Note for:: 03/27/17 Subjective:: This is a follow-up visit for acute pancreatitis. Reason For Visit: ACUTE PANCREATITIS ABD PAIN AND NAUSEA Physical Exam Vital Signs: Temp Pulse Resp BP Pulse Ox 97.6 F 56 L 20 137/41 H 93 03/27/17 07:45 03/27/17 07:45 03/27/17 07:45 03/27/17 07:45 03/27/17 07:45 Intake & Output 03/26/17 03/27/17 03/28/17 06:59 06:59 06:59 Intake Total 330 1510 Output Total 1700 2375 Balance -1370 -865 Weight 98.5 kg 100.6 kg GENERAL: This is a well-developed obese white female resting in her chair in NAD HEART: Regular rate and rhythm. No murmurs, rubs or gallops. LUNGS: Clear to auscultation bilaterally with equal rise and fall of the chest. ABDOMEN: Soft, nontender, nondistended with normoactive bowel sounds EXTREMETIES: No clubbing, cyanosis or edema. 2+ peripheral pulses bilaterally. NEURO: Awake, alert and oriented 3. Cranial nerves II through XII are grossly intact. Results Laboratory Results: 03/27/17 04:09 03/27/17 04:09 03/27/17 03/27/17 04:09 04:09 WBC 13.4 H RBC 4.13 Hgb 12.5 Hct 37.1 MCV 90 MCH 30.2 MCHC 33.6 RDW 13.0 Plt Count 160 Seg Neutrophils % 80.6 H Lymphocytes % 8.5 L Monocytes % 8.5 Eosinophils % 1.9 Basophils % 0.5 Absolute Neutrophils 10.8 H Absolute Lymphocytes 1.1 Absolute Monocytes 1.1 Absolute Eosinophils 0.3 Absolute Basophils 0.1 Sodium 136.5 L Potassium 3.8 Chloride 105 Carbon Dioxide 21 L Anion Gap 11 BUN 20 Creatinine 0.99 Est GFR ( Amer) > 60 Est GFR (Non-Af Amer) 55 L Glucose 101 Calcium 8.5 Magnesium 1.8 Impressions: Limited or Localized CT 03/23/17 16:42 IMPRESSION: Trace peripancreatic inflammatory changes near the pancreatic head - duodenal confluence.Trace pelvic free fluid. Assessment & Plan - Diagnosis (1) Acute pancreatitis Is this a current diagnosis for this admission?: Yes Plan: Patient symptoms may be secondary to medication side effects. Of all the medications she is taking, Nexium does have a side effect of pancreatitis listed as well as protonix and other ppi's. H2 edd has this as a side effect of pancreatitis as well. Will begin protonix after having a conversation with the patient. We will advance to full liquids and then as tolerated. (2) CKD stage 3 due to type 2 diabetes mellitus Is this a current diagnosis for this admission?: Yes (3) Diabetes Qualifiers: Diabetes mellitus type: type 2 Is this a current diagnosis for this admission?: Yes Plan: Continue sliding scale insulin (4) Obesity Qualifiers: Body mass index: BMI 39.0-39.9 Is this a current diagnosis for this admission?: Yes Plan: Patient is status post a gastric sleeve. Apparently after she had a gastric sleeve she was told to stop taking Plavix. Therefore Plavix has been discontinued. Continued weight loss through dietary changes and exercise as tolerated. (5) History of CVA (cerebrovascular accident) Is this a current diagnosis for this admission?: No Plan: Patient has a history of a CVA. It is unclear as to what kind of stroke. This happened about 2 years ago. 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 She was on Plavix at that time. Plavix was discontinued over a year ago when she had a gastric sleeve. She is not currently receiving any active treatment for CVA with the exception of daily aspirin. (6) Dyslipidemia Is this a current diagnosis for this admission?: Yes
[2017-03-27] MEDS ORDERED: LIDOCAINE 2% VISCOUS SOLN 20 ML UDCUP PO ONE (20:22)
[2017-03-27] MEDS ORDERED: MAG HYDROX/AL HYDROX/SIMETH SUSP 30 ML UDCUP PO ONE (20:22)
[2017-03-27] MEDS ORDERED: METOCLOPRAMIDE HCL ORAL SOLN 10 MG/10 ML UDCUP PO ONE (20:22)
[2017-03-27] MEDS ORDERED: MAGNESIUM SULFATE/D5W 1 GM/100 ML RTUPB IV ONE (20:23)
[2017-03-27] MEDS ORDERED: NORMAL SALINE 1000 ML 1,000 ML IV ONE (20:23)
[2017-03-27] MEDS ORDERED: ASPIRIN 81 MG TABLET, CHEWABLE PO ONE (20:30)
[2017-03-27] MEDS: PANTOPRAZOLE SODIUM 40 MG VIAL IV SCH (20:59)
[2017-03-27 21:46] LABS: CREATINE KINASE MB 0.48 ng/mL (<4.55)
[2017-03-27 21:49] LABS: TROPONIN I < 0.012 ng/mL
--- NOTE | 2017-03-27 22:01 | EKG REPORT ---
SEVERITY:- ABNORMAL ECG - SINUS RHYTHM PROBABLE LEFT ATRIAL ABNORMALITY LEFT ANTERIOR FASCICULAR BLOCK LEFT VENTRICULAR HYPERTROPHY ANTERIOR Q WAVES, POSSIBLY DUE TO LVH , CANNOT R/O ANTERIOR AR AGE INDETERMINATE BORDERLINE T ABNORMALITIES, INFERIOR LEADS : Confirmed by: Han Foster 27-Mar-2017 22:00:33
[2017-03-27] MEDS ORDERED: SUCRALFATE SUSP 1 GM/10 ML UDCUP PO ONE (22:45)
[2017-03-27 22:53] LABS: ANION GAP 11 (5-19); BLOOD UREA NITROGEN 21 mg/dL (7-20); CARBON DIOXIDE 23 mmol/L (22-30); CHLORIDE 103 mmol/L (98-107); CREATININE RESULT 1.23 mg/dL (0.52-1.25); GLUCOSE 118 mg/dL (75-110); SODIUM 136.7 mmol/L (137-145)
[2017-03-27] MEDS: SUCRALFATE SUSP 1 GM/10 ML UDCUP PO SCH (22:57)
[2017-03-28 03:57] LABS: CREATINE KINASE MB 0.34 ng/mL (<4.55)
[2017-03-28 03:58] LABS: TROPONIN I < 0.012 ng/mL
[2017-03-28] MEDS: HEPARIN SOD (PORCINE) 5,000 UNIT/ML 1 ML SYRINGE SUBCUT SCH ×2 (05:17→14:16)
[2017-03-28] MEDS: SUCRALFATE SUSP 1 GM/10 ML UDCUP PO SCH ×2 (05:17→11:57)
[2017-03-28 07:03] LABS: ANION GAP 10 (5-19); BLOOD UREA NITROGEN 19 mg/dL (7-20); CALCIUM 8.4 mg/dL (8.4-10.2); CARBON DIOXIDE 22 mmol/L (22-30); CHLORIDE 106 mmol/L (98-107); CREATININE RESULT 1.13 mg/dL (0.52-1.25); GLUCOSE 106 mg/dL (75-110); MAGNESIUM 2.1 mg/dL (1.6-2.3); POTASSIUM 3.9 mmol/L (3.6-5.0)
[2017-03-28 09:45] LABS: TROPONIN I < 0.012 ng/mL
[2017-03-28] MEDS: KETOROLAC TROMETHAMINE INJ/PF 30 MG/1 ML SDV IV PRN (09:56)
[2017-03-28] MEDS: ASPIRIN 81 MG TABLET, ENT COATED PO SCH (09:56)
[2017-03-28] MEDS: PANTOPRAZOLE SODIUM 40 MG VIAL IV SCH (09:57)
--- NOTE | 2017-03-28 15:26 | PDOC DISCHARGE SUMMARY ---
General - Admit/Disc Date/PCP Admission Date/Primary Care Provider: 03/23/17 19:55 Discharge Date: 03/28/17 - Discharge Diagnosis (1) Acute pancreatitis Is this a current diagnosis for this admission?: Yes (2) CKD stage 3 due to type 2 diabetes mellitus Is this a current diagnosis for this admission?: Yes (3) Diabetes Is this a current diagnosis for this admission?: Yes (4) Obesity Is this a current diagnosis for this admission?: Yes (5) History of CVA (cerebrovascular accident) Is this a current diagnosis for this admission?: No (6) Dyslipidemia Is this a current diagnosis for this admission?: Yes - Additional Information Resuscitation Status: Full Code Prescriptions: Tramadol HCl 50 - 100 mg PO Q6HP PRN #12 tablet PRN Reason: Sucralfate [Carafate Susp 1 gm/10 ml Udcup] 1 gm PO Q6 #24 udc Home Medications: Esomeprazole Magnesium [Nexium] 20 mg PO DAILY 03/24/17 Levothyroxine Sodium [Synthroid 0.112 mg Tablet] 0.112 mg PO DAILY 03/24/17 Losartan Potassium [Cozaar 100 mg Tablet] 100 mg PO DAILY 03/24/17 Nifedipine [Nifedipine ER] 60 mg PO DAILY 03/24/17 Paroxetine HCl [Paxil 20 mg Tablet] 20 mg PO DAILY 03/24/17 Sucralfate [Carafate Susp 1 gm/10 ml Udcup] 1 gm PO Q6 #24 udc 03/28/17 Tramadol HCl 50 - 100 mg PO Q6HP PRN #12 tablet 03/28/17 History of Present Illness History of Present Illness: OTF RIVERA is a 71 year old white female with a history of GERD and gastric sleeve on Nexium who presented to the service with pancreatitis. Please see the details of admission as outlined by the admitting physician below. History of Present Illness Admission Date/PCP: 03/23/17 19:55 Patient complains of: Epigastric pain and nausea History of Present Illness: OTF RIVERA is a 71 year old female with a past medical history of coronary artery disease, diabetes, dyslipidemia, hypothyroidism who is status post gastric sleeve approximately 12 months ago. Patient presents with 3 or 4 days of epigastric pain that radiates to the back associated with nausea without vomiting and loose stools. Pain is exacerbated by p.o. intake, alleviated by leaning forward and minimizing movement. She denies fever chills palpitations or chest pain. She denies previous episode, alcohol or new medications. In the emergency room she is found to have unremarkable LFTs but a lipase of 21, [address] showing inflammation of the head of the pancreas without ductal dilatation. She is referred to the hospitalist for admission. Hospital Course Hospital Course: Patient was admitted to the hospital. She was seen by the GI service who took her for upper endoscopy. Narrowing of the gastric sleeve was found. There is concerned that her proton pump inhibitor could have caused her pancreatitis versus Passing gallbladder stone. Her PPI was held for 2 days. It was resumed the day prior to discharge to see if it will cause any abdominal pain. Patient' s abdominal pain and lipase levels did gradually come down and her pain almost completely subsided. The patient is able to tolerate soft foods. She will need to follow-up with Dr. Hutton as directed. She will also need to continue on her Nexium. Should she have any further issues of severe abdominal pain she was told to stop her Nexium and contact either her PCP or Dr. Hutton. Physical Exam Vital Signs: Temp Pulse Resp BP Pulse Ox 98.2 F 61 20 135/59 H 99 03/28/17 11:36 03/28/17 11:36 03/28/17 11:36 03/28/17 11:36 03/28/17 11:36 Intake & Output 03/27/17 03/28/17 03/29/17 06:59 06:59 06:59 Intake Total 1510 2220 660 Output Total 2375 1050 950 Balance -865 1170 -290 Weight 100.6 kg 99.4 kg GENERAL: This is a well-developed obese white female resting in bed in no acute distress. HEART: Regular rate and rhythm. 1/6 murmurs. No rubs or gallops. LUNGS: Clear to auscultation bilaterally with equal rise and fall of the chest. ABDOMEN: Soft, nontender, nondistended with normoactive bowel sounds EXTREMETIES: No clubbing, cyanosis or edema. 2+ peripheral pulses bilaterally. NEURO: Awake, alert and oriented 3. Cranial nerves II through XII are grossly intact. Results Laboratory Results: 03/27/17 04:09 03/28/17 05:59 03/27/17 03/28/17 20:47 05:59 Sodium 136.7 L 138.0 Potassium 4.0 3.9 Chloride 103 106 Carbon Dioxide 23 22 Anion Gap 11 10 BUN 21 H 19 Creatinine 1.23 1.13 Est GFR ( Amer) 52 L 58 L Est GFR (Non-Af Amer) 43 L 48 L Glucose 118 H 106 Calcium 9.0 8.4 Magnesium 2.1 03/27/17 03/27/17 03/28/17 20:47 20:47 02:44 Creatine Kinase < 20 L < 20 L CK-MB (CK-2) 0.48 Troponin I < 0.012 03/28/17 03/28/17 03/28/17 02:44 08:50 08:50 Creatine Kinase 21 L CK-MB (CK-2) 0.34 0.30 Troponin I < 0.012 < 0.012 Impressions: Limited or Localized CT 03/23/17 16:42 IMPRESSION: Trace peripancreatic inflammatory changes near the pancreatic head - duodenal confluence.Trace pelvic free fluid. Qualifiers PATEINT BEING DISCHARGED WITH ANY OF THE FOLLOWING DIAGNOSIS?: No Plan Time Spent: Less than 30 Minutes
[2017-03-28 15:35] LABS: TROPONIN I < 0.012 ng/mL
[2017-03-28 15:49] VITALS: BP 138/62
== END 2017-03-28 16:45 | disposition home or self-care (01) | DRG 440 ==
LOC: ER 16:27 → EH 19:55 → 5 03-24 14:14
PROVIDERS: ADMIT Internal Medicine; ATTEND Internal Medicine
PROC: 0DD68ZX Extraction of Stomach, Via Natural or Artificial Opening Endoscopic, Diagnostic (ICD-10-PCS; principal; 2017-03-26 09:30)
DX: K85.90 Acute pancreatitis without necrosis or infection, unspecified (principal); K25.9 Gastric ulcer, unspecified as acute or chronic, without hemorrhage or perforation; E11.22 Type 2 diabetes mellitus with diabetic chronic kidney disease; I12.9 Hypertensive chronic kidney disease with stage 1 through stage 4 chronic kidney disease, or unspecified chronic kidney disease; N18.3 Chronic kidney disease, stage 3 (moderate); E78.5 Hyperlipidemia, unspecified; M19.90 Unspecified osteoarthritis, unspecified site; F32.9 Major depressive disorder, single episode, unspecified; E66.9 Obesity, unspecified; Z68.39 Body mass index [BMI] 39.0-39.9, adult; Z88.0 Allergy status to penicillin; Z91.030 Bee allergy status; Z91.041 Radiographic dye allergy status; Z98.84 Bariatric surgery status; Z86.73 Personal history of transient ischemic attack (TIA), and cerebral infarction without residual deficits; Z79.82 Long term (current) use of aspirin; Z79.4 Long term (current) use of insulin; Z79.899 Other long term (current) drug therapy
CPT/HCPCS: 36415; 43239; 76380; 80048; 80053; 80061; 81001; 82550; 82553; 83036; 83690; 83735; 84443; 84484; 85025; 87086; 87088; 87186; 88305; 88342; 93005; 93010; 94660; 96361; 96374; 96375; 99285; J0171; J1200; J1610; J1644; J1815; J1885; J2250; J2270; J2310; J2405; J3010; J3475; J3490; J7030; S0164

== ENCOUNTER 2017-08-09 16:33 | Observation (INO) | payer MEDICARE, OTHER ==
--- NOTE | 2017-08-09 17:40 | EKG REPORT ---
SEVERITY:- ABNORMAL ECG - SINUS RHYTHM LEFT AXIS DEVIATION LEFT VENTRICULAR HYPERTROPHY : Confirmed by: Wilberto Carranza MD 09-Aug-2017 17:39:32
[2017-08-09] MEDS ORDERED: ASPIRIN 81 MG TABLET, CHEWABLE PO ONE (18:15)
--- NOTE | 2017-08-09 18:19 | ER Document Report ---
ED Medical Screen (RME) - General Chief Complaint: Chest Pain Stated Complaint: CHEST PAIN Time Seen by Provider: 08/09/17 17:45 Notes: Patient was at [employer] and begain to feel pain above left eye, then chest pain. [place] unable to concentrate. Still feels heaviness in chest.Was nauseated but not vomiting. Slight SOB, History of previous stroke and previous heart attack. 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 TRAVEL OUTSIDE OF THE [place] IN LAST 30 DAYS: No - Related Data Allergies/Adverse Reactions: bee venom protein (honey bee) Allergy (Verified 08/09/17 16:34) Iodinated Contrast- Oral and IV Dye [IV Dye, Iodine Containing] Allergy ( Verified 08/09/17 16:34) Penicillins Allergy (Verified 08/09/17 16:34) Past Medical History - Past Medical History Cardiac Medical History: Reports: Hx Heart Attack, Hx Hypertension Denies: Hx Coronary Artery Disease Pulmonary Medical History: Reports: Hx Pneumonia Denies: Hx Asthma, Hx Bronchitis, Hx COPD Neurological Medical History: Reports: Hx Cerebrovascular Accident. Denies: Hx Seizures Endocrine Medical History: Reports: Hx Diabetes Mellitus Type 2 Renal/ Medical History: Denies: Hx Peritoneal Dialysis Musculoskeltal Medical History: Reports Hx Arthritis Psychiatric Medical History: Reports: Hx Depression Past Surgical History: Reports: Other - Gastric sleeve 1 year ago. Denies: Hx Hysterectomy - Immunizations Hx Diphtheria, Pertussis, Tetanus Vaccination: Yes History of Influenza Vaccine for 01/2017 - 06/2017 Season: Yes Influenza Administration Date for 01/2017 - 06/2017 Season: 01/12/17 Physical Exam - Vital signs Vitals: Temp Pulse Resp BP Pulse Ox 97.6 F 81 16 134/65 H 98 08/09/17 16:46 08/09/17 16:46 08/09/17 16:46 08/09/17 16:46 08/09/17 16:46 Course - Vital Signs Vital signs: Temp Pulse Resp BP Pulse Ox 97.6 F 81 16 134/65 H 98 08/09/17 16:46 08/09/17 16:46 08/09/17 16:46 08/09/17 16:46 08/09/17 16:46 Doctor's Discharge - Discharge Referrals: HARJINDER MANTILLA MD [Primary Care Provider] - Follow up as needed
[2017-08-09 18:47] LABS: ABSOLUTE BASOPHILS # (AUTO) 0.1 10^3/uL (0.0-0.2); ABSOLUTE EOSINOPHILS # (AUTO) 0.1 10^3/uL (0.0-0.6); ABSOLUTE LYMPHOCYTES (AUTO) 1.5 10^3/uL (0.5-4.7); ABSOLUTE MONOCYTES (AUTO) 0.6 10^3/uL (0.1-1.4); ABSOLUTE NEUT (AUTO) 5.9 10^3/uL (1.7-8.2); BASOPHILS % (AUTO) 0.9 % (0-2); EOSINOPHILS % (AUTO) 1.8 % (0-6); HEMATOCRIT 45.6 % (36.0-47.0); HEMOGLOBIN 15.2 g/dL (12.0-15.5); LYMPHOCYTES % (AUTO) 17.8 % (13-45); MEAN CORPUSCULAR HEMOGLOBIN 30.4 pg (27.0-33.4); MEAN CORPUSCULAR HGB CONC 33.4 g/dL (32.0-36.0); MEAN CORPUSCULAR VOLUME 91 fl (80-97); MONOCYTES % (AUTO) 7.1 % (3-13); PLATELET COUNT 269 10^3/uL (150-450); RED BLOOD COUNT 5.01 10^6/uL (3.72-5.28); SEGMENTED NEUTROPHILS % (AUTO) 72.4 % (42-78); TOTAL CELLS COUNTED % (AUTO) 100 %; WHITE BLOOD COUNT 8.2 10^3/uL (4.0-10.5)
--- NOTE | 2017-08-09 18:51 | RADIOLOGY REPORT (SQ) ---
EXAM DESCRIPTION: CT HEAD WITHOUT COMPLETED DATE/TIME: 08/09/2017 6:38 pm REASON FOR STUDY: left frontal [place] COMPARISON: 03/03/2013 TECHNIQUE: Axial images acquired through the brain without intravenous contrast. Images reviewed wi th bone, brain and subdural windows. Images stored on PACS. All CT scanners at this facility use dose modulation, iterative reconstruction, and/or weight based d osing when appropriate to reduce radiation dose to as low as reasonably achievable (ALARA). [facility]: Dose Right [facility]: CareDose [facility]: Dose Right [facility]: Teradose 4D [facility]: Smart ixigo RADIATION DOSE: CT Rad equipment meets quality standard of care and radiation dose reduction techniq ues were employed. CTDIvol: 53.2 mGy. DLP: 964 mGy-cm. mGy. LIMITATIONS: None. FINDINGS: VENTRICLES: Normal size and contour. CEREBRUM: No masses. No hemorrhage. No midline shift. No evidence for acute infarction. Normal gra y/white matter differentiation. No areas of low density in the white matter. CEREBELLUM: No masses. No hemorrhage. No alteration of density. No evidence for acute infarction. EXTRAAXIAL SPACES: No fluid collections. No masses. ORBITS AND GLOBE: No intra- or extraconal masses. Normal contour of globe without masses. CALVARIUM: No fracture. PARANASAL SINUSES: No fluid or mucosal thickening. SOFT TISSUES: No mass or hematoma. OTHER: No other significant finding. IMPRESSION: No acute intracranial findings. EVIDENCE OF ACUTE STROKE: NO. COMMENT: Quality ID # [id number]: Final reports with documentation of one or more dose reduction techniques (e.g., Automated exposure control, adjustment of the mA and/or kV according to patient size, use of iterative reconstruction technique) TECHNICAL DOCUMENTATION: JOB ID: [id number] [place]-72 2010 [employer]- All Rights Reserved Reading location - IP/workstation name: [email or web address]
--- NOTE | 2017-08-09 18:57 | RADIOLOGY REPORT (SQ) ---
EXAM DESCRIPTION: CHEST SINGLE VIEW COMPLETED DATE/TIME: 08/09/2017 6:33 pm REASON FOR STUDY: chest pain COMPARISON: 03/03/2013 EXAM PARAMETERS: NUMBER OF VIEWS: One view. TECHNIQUE: Single frontal radiographic view of the chest acquired. RADIATION DOSE: NA LIMITATIONS: None. FINDINGS: LUNGS AND PLEURA: No acute opacities, masses or pneumothorax. No pleural effusion. MEDIASTINUM AND HILAR STRUCTURES: No masses. Contour normal. HEART AND VASCULAR STRUCTURES: Heart normal in size. Normal vasculature. BONES: No acute findings. HARDWARE: None in the chest. OTHER: No other significant finding. IMPRESSION: NO ACUTE RADIOGRAPHIC FINDING IN THE CHEST. TECHNICAL DOCUMENTATION: JOB ID: [id number] [place]-72 2010 [employer]- All Rights Reserved Reading location - IP/workstation name: [email or web address]
[2017-08-09 18:59] LABS: ALANINE AMINOTRANSFERASE 25 U/L (9-52); ALBUMIN 4.6 g/dL (3.5-5.0); ALKALINE PHOSPHATASE 84 U/L (38-126); ANION GAP 13 (5-19); ASPARTATE AMINO TRANSFERASE 17 U/L (14-36); BILIRUBIN,DIRECT 0.2 mg/dL (0.0-0.4); BILIRUBIN,TOTAL 0.2 mg/dL (0.2-1.3); BLOOD UREA NITROGEN 33 mg/dL (7-20); CALCIUM 9.8 mg/dL (8.4-10.2); CARBON DIOXIDE 27 mmol/L (22-30); CHLORIDE 106 mmol/L (98-107); CREATINE KINASE 40 U/L (30-135); GLUCOSE 149 mg/dL (75-110); POTASSIUM 4.7 mmol/L (3.6-5.0); SODIUM 145.6 mmol/L (137-145); TOTAL PROTEIN 7.8 g/dL (6.3-8.2)
[2017-08-09 19:13] LABS: TROPONIN I < 0.012 ng/mL
--- NOTE | 2017-08-09 23:55 | ER Document Report ---
ED Cardiac - General Chief Complaint: Chest Pain Stated Complaint: CHEST PAIN Time Seen by Provider: 08/09/17 17:45 Mode of Arrival: Ambulatory Information source: Patient Notes: 72-year-old female presents to emergency department with complaints of chest pressure with radiation to her left shoulder that started at about 4 PM today. Patient states that she was at [facility] when she had the sudden onset of chest. Patient states that she just did not feel right. Patient reports that she also had nausea which resolved rather quickly. Patient denies any shortness of breath or diaphoresis. Patient reports that the pain was 4 out of 5 at its worst and is now 1 out of 5. Patient reports past medical history of stroke, CA, hypertension, hypothyroidism, and a gastric sleeve. Patient reports that she has seen a it consulting director and [facility] Reed, Dr. Thapa, and had a stress test and echocardiogram done but that was done many years ago. Patient reports that when she had the onset of chest pain she also had a small pain behind her left eye. Patient states that when she had her stroke several years ago she had a similar pain behind her eye so a head CT was ordered from triage. TRAVEL OUTSIDE OF THE [place] IN LAST 30 DAYS: No - Related Data Allergies/Adverse Reactions: bee venom protein (honey bee) Allergy (Verified 08/09/17 16:34) Iodinated Contrast- Oral and IV Dye [IV Dye, Iodine Containing] Allergy ( Verified 08/09/17 16:34) Penicillins Allergy (Verified 08/09/17 16:34) Past Medical History - General Information source: Patient - Social History Smoking Status: Unknown if Ever Smoked Family History: Hypertension, Malignancy - Lung cancer Patient has suicidal ideation: No Patient has homicidal ideation: No - Past Medical History Cardiac Medical History: Reports: Hx Heart Attack, Hx Hypertension Denies: Hx Coronary Artery Disease Pulmonary Medical History: Reports: Hx Pneumonia Denies: Hx Asthma, Hx Bronchitis, Hx COPD Neurological Medical History: Reports: Hx Cerebrovascular Accident. Denies: Hx Seizures Endocrine Medical History: Reports: Hx Diabetes Mellitus Type 2 Renal/ Medical History: Denies: Hx Peritoneal Dialysis Musculoskeltal Medical History: Reports Hx Arthritis Psychiatric Medical History: Reports: Hx Depression Past Surgical History: Reports: Other - Gastric sleeve 1 year ago. Denies: Hx Hysterectomy - Immunizations Hx Diphtheria, Pertussis, Tetanus Vaccination: Yes Hx Pneumococcal Vaccination: 12/14/15 Review of Systems - Review of Systems Constitutional: No symptoms reported EENT: No symptoms reported Cardiovascular: Chest pain - pressure Respiratory: No symptoms reported Gastrointestinal: Nausea Genitourinary: No symptoms reported Female Genitourinary: No symptoms reported Musculoskeletal: No symptoms reported Skin: No symptoms reported Hematologic/Lymphatic: No symptoms reported Neurological/Psychological: No symptoms reported Physical Exam - Vital signs Vitals: Temp Pulse Resp BP Pulse Ox 97.6 F 81 16 134/65 H 98 08/09/17 16:46 08/09/17 16:46 08/09/17 16:46 08/09/17 16:46 08/09/17 16:46 - Notes Notes: PHYSICAL EXAMINATION: GENERAL: Well-appearing, well-nourished and in no acute distress. HEAD: Atraumatic, normocephalic. EYES: Pupils equal round and reactive to light, extraocular movements intact, conjunctiva are normal. ENT: Nares patent, oropharynx clear without exudates. Moist mucous membranes. NECK: Normal range of motion, supple without lymphadenopathy LUNGS: Breath sounds clear to auscultation bilaterally and equal. No wheezes rales or rhonchi. HEART: Regular rate and rhythm without murmurs ABDOMEN: Soft, nontender, nondistended abdomen. No guarding, no rebound. No masses appreciated. Female : deferred Musculoskeletal: Normal range of motion, no pitting or edema. No cyanosis. NEUROLOGICAL: Cranial nerves grossly intact. Normal speech, normal gait. Normal sensory, motor exams PSYCH: Normal mood, normal affect. SKIN: Warm, Dry, normal turgor, no rashes or lesions noted. Course - Re-evaluation Re-evalutation: Upon initial examination of patient, patient states that her chest pressure and nausea have resolved. Patient does state that at the time of onset of her chest pain she also had a mild pain behind her left eye was similar to when she had her stroke [address] was ordered by the triage provider and has no acute findings. Her initial EKG is a sinus rhythm, with LVH, no acute changes noted and no change from previous EKG on file. Initial cardiac enzymes are negative. Will draw a repeat troponin and consult hospitalist for admission this patient has a heart score of 5. [employer] Dr. Sanchez, hospitalist, for possible admission. Dr. Sanchez requesting results on second troponin which have not resulted yet. Patient remains chest pain-free at this time and is agreeable to plan of care. Second troponin is negative. Patient continues to be chest pain-free however her heart score is a 5. Dr. Sanchez agrees to bring patient has a telemetry observation. Patient is agreeable to this plan of care. - Vital Signs Vital signs: Temp Pulse Resp BP Pulse Ox 97.6 F 81 22 H 138/62 H 96 08/10/17 02:56 08/09/17 16:46 08/10/17 02:00 08/10/17 02:01 08/10/17 02:01 - Laboratory Result Diagrams: 08/09/17 18:26 08/09/17 18:26 Laboratory results interpreted by me: 08/09/17 18:26 Sodium 145.6 H BUN 33 H Creatinine 1.26 H Est GFR ( Amer) 51 L Est GFR (Non-Af Amer) 42 L Glucose 149 H Discharge - Discharge Clinical Impression: Chest pain Qualifiers: Chest pain type: unspecified Qualified Code(s): R07.9 - Chest pain, unspecified Condition: Stable Disposition: ADMITTED INPATIENT Admitting Provider: Hospitalist Unit Admitted: Telemetry
[2017-08-10] MEDS ORDERED: NITROGLYCERIN 0.4 MG/TAB 25 TAB/BOTTLE SL PRN (00:33)
[2017-08-10] MEDS: HEPARIN SOD (PORCINE) 5,000 UNIT/ML 1 ML SYRINGE SUBCUT SCH ×2 (05:28→13:54)
--- NOTE | 2017-08-10 06:05 | PDOC H&P ---
History of Present Illness Admission Date/PCP: 08/10/17 00:33 HARJINDER MANTILLA MD Patient complains of: Chest pain History of Present Illness: OTF RIVERA is a 72 year old female with past medical history of coronary artery disease, anxiety, depression, diabetes, dyslipidemia, obstructive sleep apnea and hypothyroidism. Patient presents after approximately 1 hour of left- sided chest pain which was preceded by 10 minutes of headache behind the left eye. Patient states that pain was pressure in nature radiated to the left shoulder associated with shortness of breath without nausea vomiting or diaphoresis. She is unable to identify alleviating or exacerbating factors. Patient states she had similar pain in 2004 when she believed she was diagnosed with acute coronary syndrome. She has had subsequent cardiac catheterization without stenting, but no recent stress testing. Patient denies recent change in medications and is pain-free. Past Medical History Cardiac Medical History: Reports: Myocardial Infarction, Hypertension Denies: Coronary Artery Disease Pulmonary Medical History: Reports: Pneumonia Denies: Asthma, Bronchitis, Chronic Obstructive Pulmonary Disease (COPD) Neurological Medical History: Denies: Seizures Endocrine Medical History: Reports: Diabetes Mellitus Type 2 Musculoskeltal Medical History: Reports: Arthritis Psychiatric Medical History: Reports: Depression, General Anxiety Disorder Hematology: Denies: Anemia Past Surgical History Past Surgical History: Reports: Other - Gastric sleeve 1 year ago Denies: Hysterectomy Social History Information Source: Patient Smoking Status: Unknown if Ever Smoked Frequency of Alcohol Use: None Drugs: None Hx Prescription Drug Abuse: No - Advance Directive Resuscitation Status: Full Code Family History Family History: CAD, Hypertension, Malignancy - Lung cancer Parental Family History Reviewed: Yes Children Family History Reviewed: Yes Sibling(s) Family History Reviewed.: Yes Medication/Allergy Home Medications: Esomeprazole Magnesium [Nexium] 20 mg PO DAILY 03/24/17 Levothyroxine Sodium [Synthroid 0.112 mg Tablet] 0.112 mg PO DAILY 03/24/17 Losartan Potassium [Cozaar 100 mg Tablet] 100 mg PO DAILY 03/24/17 Nifedipine [Nifedipine ER] 60 mg PO DAILY 03/24/17 Paroxetine HCl [Paxil 20 mg Tablet] 20 mg PO DAILY 03/24/17 Sucralfate [Carafate Susp 1 gm/10 ml Udcup] 1 gm PO Q6 #24 udc 03/28/17 Tramadol HCl 50 - 100 mg PO Q6HP PRN #12 tablet 03/28/17 Allergies/Adverse Reactions: bee venom protein (honey bee) Allergy (Verified 08/09/17 16:34) Iodinated Contrast- Oral and IV Dye [IV Dye, Iodine Containing] Allergy ( Verified 08/09/17 16:34) Penicillins Allergy (Verified 08/09/17 16:34) Review of Systems Constitutional: ABSENT: chills, fever(s), headache(s), weight gain, weight loss Eyes: ABSENT: visual disturbances Ears: ABSENT: hearing changes Cardiovascular: ABSENT: chest pain, dyspnea on exertion, edema, orthropnea, palpitations Respiratory: ABSENT: cough, hemoptysis Gastrointestinal: ABSENT: abdominal pain, constipation, diarrhea, hematemesis, hematochezia, nausea, vomiting Genitourinary: ABSENT: dysuria, hematuria Musculoskeletal: ABSENT: joint swelling Integumentary: ABSENT: rash, wounds Neurological: ABSENT: abnormal gait, abnormal speech, confusion, dizziness, focal weakness, syncope Psychiatric: ABSENT: anxiety, depression, homidical ideation, suicidal ideation Endocrine: ABSENT: cold intolerance, heat intolerance, polydipsia, polyuria Hematologic/Lymphatic: ABSENT: easy bleeding, easy bruising Physical Exam Vital Signs: Temp Pulse Resp BP Pulse Ox 97.6 F 54 L 22 H 138/62 H 96 08/10/17 02:56 08/10/17 02:46 08/10/17 02:00 08/10/17 02:01 08/10/17 02:01 Intake & Output 08/08/17 08/09/17 08/10/17 11:59 11:59 11:59 Weight 100.6 kg General appearance: PRESENT: no acute distress, well-developed, well-nourished Head exam: PRESENT: atraumatic, normocephalic Eye exam: PRESENT: conjunctiva pink, EOMI, PERRLA. ABSENT: scleral icterus Ear exam: PRESENT: normal external ear exam Mouth exam: PRESENT: moist, tongue midline Neck exam: ABSENT: carotid bruit, JVD, lymphadenopathy, thyromegaly Respiratory exam: PRESENT: clear to auscultation porsche. ABSENT: rales, rhonchi, wheezes Cardiovascular exam: PRESENT: RRR. ABSENT: diastolic murmur, rubs, systolic murmur Pulses: PRESENT: normal dorsalis pedis pul Vascular exam: PRESENT: normal capillary refill GI/Abdominal exam: PRESENT: normal bowel sounds, soft. ABSENT: distended, guarding, mass, organolmegaly, rebound, tenderness Rectal exam: PRESENT: deferred Extremities exam: PRESENT: full ROM. ABSENT: calf tenderness, clubbing, pedal edema Neurological exam: PRESENT: alert, awake, oriented to person, oriented to place , oriented to time, oriented to situation, CN II-XII grossly intact. ABSENT: motor sensory deficit Psychiatric exam: PRESENT: appropriate affect, normal mood. ABSENT: homicidal ideation, suicidal ideation Skin exam: PRESENT: dry, intact, warm. ABSENT: cyanosis, rash Results Laboratory Results: 08/10/17 08/10/17 04:21 04:21 Creatine Kinase 28 L Troponin I < 0.012 Impressions: Chest X-Ray 08/09/17 18:16 IMPRESSION: NO ACUTE RADIOGRAPHIC FINDING IN THE CHEST. Head CT 08/09/17 18:19 IMPRESSION: No acute intracranial findings. EVIDENCE OF ACUTE STROKE: NO. Assessment & Plan - Diagnosis (1) Chest pain Qualifiers: Chest pain type: unspecified Qualified Code(s): R07.9 - Chest pain, unspecified Is this a current diagnosis for this admission?: Yes Plan: Atypical chest pain though the patient's pain is atypical there are multiple risk factors for coronary artery disease and subsequently will observe and evaluation of acute coronary syndrome versus coronary artery disease with anginal equivalents. Cardiac monitoring blood pressure Q6 hours ,TSH, lipid profile, serial cardiac enzymes and cardiac stress test (2) Obstructive sleep apnea Is this a current diagnosis for this admission?: Yes Plan: CPAP (3) Dyslipidemia Is this a current diagnosis for this admission?: Yes Plan: Evaluate lipid profile continue statin. - Time Time Spent: 30 to 50 Minutes
[2017-08-10] MEDS ORDERED: LEVOTHYROXINE SODIUM 0.112 MG TABLET PO ONE (08:30)
[2017-08-10] MEDS ORDERED: LEVOTHYROXINE SODIUM 0.112 MG TABLET PO SCH (10:00)
[2017-08-10] MEDS ORDERED: DOCUSATE SODIUM 100 MG CAPSULE PO SCH (10:00)
[2017-08-10] MEDS ORDERED: PAROXETINE HCL 20 MG TABLET PO SCH (10:00)
[2017-08-10] MEDS ORDERED: LANSOPRAZOLE 15 MG TAB.RAP.DR PO SCH (10:00)
[2017-08-10] MEDS ORDERED: LOSARTAN POTASSIUM 50 MG TABLET PO SCH (10:00)
[2017-08-10] MEDS ORDERED: NIFEDIPINE 30 MG TAB.ER.24 PO SCH (10:00)
[2017-08-10] MEDS ORDERED: AMINOPHYLLINE INJ/PF 250 MG/10 ML SDV IV ONE (12:23)
[2017-08-10] MEDS ORDERED: REGADENOSON INJ 0.4 MG/5 ML DISP.SYRIN IV ONE (12:23)
--- NOTE | 2017-08-10 13:04 | DRAGON STRESS TEST REPORT ---
INTRAVENOUS LEXISCAN CARDIOLITE STRESS TEST USING SINGLE PHOTON EMMISION COMPUTERIZED TOMOGRAPHIC. DATE OF PROCEDURE: August 10, 2017, INDICATION : Chest pain CARDIAC RISK FACTORS: Diabetes, hypertension RESTING EKG: Sinus rhythm, minor nonspecific ST-T changes STRESS EKG: No significant ST segment changes noted with LexiScan bolus REASON FOR TERMINATION: Protocol. PROCEDURE REPORT: Baseline heart rate 67 beats per minute with blood pressure of 139/82. Patient had no significant complaints. Patient was bolused with Lexiscan 0.4 mg intravenously followed by saline bolus. Heart rate at 2 minutes post bolus 85 with a blood pressure of 151/91. 3 minutes post bolus heart rate 84 with blood pressure of 158/85. No significant EKG changes were noted. Patient had no significant complaints during the procedure or postprocedure, except for transient midsternal chest discomfort described as sharp. Patient injected with Aminophyllin 75 mg at 3 minutes or later after Lexiscan bolus. CONCLUSIONS: Normal EKG and hemodynamic response to IV LexiScan. NUCLEAR DATA: At rest the patient was given 14.59 millicuries of technetium 99 sestamibi injected intravenously. As per protocol rest gated SPECT images were obtained. On day of stress test, the patient was given intravenous LexiScan at a dose of 0.4 mg in 5 mL intravenously, followed by flush with normal saline. Subsequently the stress dose of 42.5 millicuries of technetium 99 sestamibi was injected intravenously. As per protocol stress gated images were obtained. NUCLEAR INTERPRETATION: Both raw and processed data were used for interpretation. Visual, qualitative, computer-generated quantitative data was used. There was good myocardial uptake of technetium compound. Motion artifact and soft tissue attenuations were noted. Increased visceral uptake was noted. No definitive areas of transient perfusion defect noted, No definitive areas of fixed perfusion defect or scars noted. EKG gated imaging showed LV EF at 58 %, rest and stress gated EF similar visually. T. I D. ratio was 1.41. Lung heart ratio noted to be within normal limits 0.28. No significant extracardiac and abnormal radiotracer activities were noted. RV free wall uptake was noted to be WNL. IMPRESSION: Also refer to comments under nuclear interpretation. Also test results needs to be interpreted in the context of pretest probability. 1. No definitive areas of transient perfusion defect noted. 2. There is no definitive scintigraphic evidence of myocardial infarction/scar. 3. EKG gated imaging shows left ventricular ejection fraction of approx. 58 %. 4. Transient ischemic dilatation noted by computer analysis. However patient' s LV cavity was noted to be a small therefore and the little changes can be magnified. Also most recent literature review from Journal of nuclear cardiology July 2013, shows that there is no significant increased cardiovascular event risk in the absence of significant perfusion abnormalities. However clinical correlation requested as occasionally single vessel disease or balanced ischemia could be missed. In approximately 10% of the cases Lexiscan may not cause adequate vasodilatory stress. RECOMMENDATIONS: Aggressive risk factor modification and medical management. Further evaluation may be needed if continued symptoms or other high risk indicators are noted on clinical evaluation. Close cardiology follow-up is also recommended. Clinical correlation with echocardiogram derived ejection fraction. Inability to exercise by itself can lead to increased cardiovascular event risks. Consider cardiology consultation and or follow-up if clinically indicated. I am available for cardiology evaluation and consultation if requested by the manager primary, unless patient already has a customer service representative teller. JOJO
[2017-08-10] MEDS ORDERED: ACETAMINOPHEN 325 MG TABLET PO PRN (13:16)
[2017-08-10 14:54] VITALS: BP 150/95
--- NOTE | 2017-08-10 16:49 | PDOC DISCHARGE SUMMARY ---
General - Admit/Disc Date/PCP Admission Date/Primary Care Provider: 08/10/17 00:33 HARJINDER MANTILLA MD Discharge Date: 08/10/17 - Discharge Diagnosis (1) Chest pain Is this a current diagnosis for this admission?: Yes Summary: The patient was admitted with a report of atypical chest pain, however, the patient has multiple risk factors for coronary artery disease and subsequently was observed for evaluation of acute coronary syndrome. She was admitted to the medical floor on continuous cardiac telemetry. Chest x-ray was negative for acute cardiopulmonary findings. Serial troponins were negative 3. Nuclear stress test revealed no definitive areas of transient perfusion defect. There is no definitive evidence of myocardial infarction or scar. EKG gated imaging showed an LVEF of approximately 50%. There was transient ischemic dilatation noted by computer analysis. Recommend follow-up echocardiogram. The patient elected to have the echocardiogram completed as an outpatient procedure. The patient denied further episodes of chest pain while admitted. At time of discharge, she is in stable condition, pain-free, maintaining oxygen saturations on room air, and tolerating a regular diet. She is instructed to continue her home medication regiment to follow-up with her primary care provider within 1 week. She may also contact Dr. Foster's office (cardiology) to arrange for outpatient echocardiogram. (2) Obstructive sleep apnea Is this a current diagnosis for this admission?: Yes Summary: The patient was provided with CPAP overnight. (3) Hypertension Is this a current diagnosis for this admission?: Yes Summary: Blood pressures were adequately well controlled with her home medication regimen of losartan and nifedipine. (4) Hypothyroidism Is this a current diagnosis for this admission?: Yes (5) Obesity Is this a current diagnosis for this admission?: Yes Summary: Recommend dietary discretion and gradual weight loss. - Additional Information Resuscitation Status: Full Code Discharge Diet: Cardiac Discharge Activity: Activity As Tolerated, Balance Activity w/Rest, Slowly Increase Activity Home Medications: Esomeprazole Magnesium [Nexium] 20 mg PO DAILY 03/24/17 Levothyroxine Sodium [Synthroid 0.112 mg Tablet] 0.112 mg PO DAILY 03/24/17 Losartan Potassium [Cozaar 100 mg Tablet] 100 mg PO DAILY 03/24/17 Nifedipine [Nifedipine ER] 60 mg PO DAILY 03/24/17 Paroxetine HCl [Paxil 20 mg Tablet] 20 mg PO DAILY 12/11/17 Acetaminophen [Acetaminophen Extra Strength] 1,000 mg PO Q12 08/10/17 History of Present Illness History of Present Illness: Per H&P by Dr. Sanchez: OTF RIVERA is a 72 year old female with past medical history of coronary artery disease, anxiety, depression, diabetes, dyslipidemia , obstructive sleep apnea and hypothyroidism. Patient presents after approximately 1 hour of left-sided chest pain which was preceded by 10 minutes of headache behind the left eye. Patient states that pain was pressure in nature radiated to the left shoulder associated with shortness of breath without nausea vomiting or diaphoresis. She is unable to identify alleviating or exacerbating factors. Patient states she had similar pain in 2004 when she believed she was diagnosed with acute coronary syndrome. She has had subsequent cardiac catheterization without stenting, but no recent stress testing. Patient denies recent change in medications and is pain-free. Physical Exam Vital Signs: Temp Pulse Resp BP Pulse Ox 97.5 F 59 L 10 L 150/66 H 100 08/10/17 07:32 08/10/17 07:32 08/10/17 07:32 08/10/17 07:32 08/10/17 07:32 Intake & Output 08/09/17 08/10/17 08/11/17 06:59 06:59 06:59 Intake Total 0 Output Total 0 Balance 0 Weight 100.6 kg General appearance: PRESENT: no acute distress, morbidly obese, well-developed, well-nourished Head exam: PRESENT: atraumatic, normocephalic Eye exam: PRESENT: conjunctiva pink, EOMI, PERRLA. ABSENT: scleral icterus Ear exam: PRESENT: normal external ear exam Mouth exam: PRESENT: moist, tongue midline Neck exam: ABSENT: carotid bruit, JVD, lymphadenopathy, thyromegaly Respiratory exam: PRESENT: clear to auscultation porsche, symmetrical, unlabored. ABSENT: rales, rhonchi, wheezes Cardiovascular exam: PRESENT: RRR, +S1, +S2. ABSENT: diastolic murmur, rubs, systolic murmur Pulses: PRESENT: normal dorsalis pedis pul Vascular exam: PRESENT: normal capillary refill GI/Abdominal exam: PRESENT: normal bowel sounds, soft. ABSENT: distended, guarding, mass, organolmegaly, rebound, tenderness Rectal exam: PRESENT: deferred Extremities exam: PRESENT: full ROM. ABSENT: calf tenderness, clubbing, pedal edema Neurological exam: PRESENT: alert, awake, oriented to person, oriented to place , oriented to time, oriented to situation, CN II-XII grossly intact. ABSENT: motor sensory deficit Psychiatric exam: PRESENT: appropriate affect, normal mood. ABSENT: homicidal ideation, suicidal ideation Skin exam: PRESENT: dry, intact, warm. ABSENT: cyanosis, rash Results Laboratory Results: 08/10/17 08/10/17 04:21 04:21 Creatine Kinase 28 L Troponin I < 0.012 Impressions: Chest X-Ray 08/09/17 18:16 IMPRESSION: NO ACUTE RADIOGRAPHIC FINDING IN THE CHEST. Head CT 08/09/17 18:19 IMPRESSION: No acute intracranial findings. EVIDENCE OF ACUTE STROKE: NO. Qualifiers - * PATIENT BEING DISCHARGED WITH ANY OF THE FOLLOWING DIAGNOSIS: No Plan Discharge Plan: Discharge to home with self-care. Follow-up with primary care provider within 1 week. Follow-up with coal tram driver within 4-6 weeks. The patient's workup did not include echocardiogram; recommend outpatient testing.
[2017-08-10] MEDS ORDERED: ATORVASTATIN CALCIUM 40 MG TABLET PO SCH (22:00)
[2017-08-11] MEDS ORDERED: LEVOTHYROXINE SODIUM 0.112 MG TABLET PO SCH (06:00)
== END 2017-08-10 15:34 | disposition home or self-care (01) ==
LOC: ER 16:33 → EH 08-10 00:33 → 3W 08-10 03:47
PROVIDERS: ADMIT Internal Medicine; ATTEND Internal Medicine
DX: R07.89 Other chest pain (principal); I25.10 Atherosclerotic heart disease of native coronary artery without angina pectoris; G47.33 Obstructive sleep apnea (adult) (pediatric); I10 Essential (primary) hypertension; E03.9 Hypothyroidism, unspecified; E66.9 Obesity, unspecified; E11.9 Type 2 diabetes mellitus without complications; R51 Headache; E78.5 Hyperlipidemia, unspecified; R11.0 Nausea; H57.12 Ocular pain, left eye; I25.2 Old myocardial infarction; Z68.39 Body mass index [BMI] 39.0-39.9, adult; Z79.899 Other long term (current) drug therapy; Z98.84 Bariatric surgery status; Z82.49 Family history of ischemic heart disease and other diseases of the circulatory system; Z80.1 Family history of malignant neoplasm of trachea, bronchus and lung; Z86.73 Personal history of transient ischemic attack (TIA), and cerebral infarction without residual deficits
CPT/HCPCS: 93005; 99285; 36415 ×2; 82553; 82962; 82550 ×2; 85025; 80053; 84484 ×2; 93017; 71045; 78452; 70450; 93010; G0378 ×2; A9500; A9270 ×8; J2785; J1644; J3490; J0280; Q9969